=== PATIENT | female | born 1940 | race Caucasian/White ===

== ENCOUNTER → 2016-07-19 | Outpatient (REF) | payer MEDICARE, BC ==
[2016-07-19 12:20] LABS: ALBUMIN 3.6 GM/DL (3.2-5.2); ALBUMIN/GLOBULIN RATIO 1.29 (1.00-1.93); ALKALINE PHOSPHATASE 115 U/L (45-117); ALT/SGPT 21 U/L (12-78); ANION GAP 10 MEQ/L (8-16); AST/SGOT 17 U/L (15-37); BILIRUBIN,TOTAL 0.3 MG/DL (0.2-1.0); BLOOD UREA NITROGEN 27 MG/DL (7-18); CALCIUM LEVEL 8.7 MG/DL (8.8-10.2); CARBON DIOXIDE LEVEL 28 MEQ/L (21-32); CHLORIDE LEVEL 105 MEQ/L (98-107); CHOLESTEROL LEVEL 208 MG/DL (<200); CREATININE FOR GFR 0.91 MG/DL (0.55-1.02); GLOMERULAR FILTRATION RATE > 60.0 (>39); GLUCOSE, FASTING 92 MG/DL (83-110); MAGNESIUM LEVEL 2.2 MG/DL (1.8-2.4); POTASSIUM SERUM 4.8 MEQ/L (3.5-5.1); SODIUM LEVEL 143 MEQ/L (136-145); TOTAL PROTEIN 6.4 GM/DL (6.4-8.2); TRIGLYCERIDES LEVEL 38 MG/DL (<150)
== END ==
LOC: M SFHCPLAZ 09:54
PROVIDERS: ATTEND Internal Medicine
DX: I10 Essential (primary) hypertension (principal); I25.10 Atherosclerotic heart disease of native coronary artery without angina pectoris; E03.9 Hypothyroidism, unspecified

== ENCOUNTER → 2016-11-25 | Outpatient (CLI) | payer MEDICARE, BC ==
[~2016-11-25] VITALS: Ht 162.6 cm; Wt 86.2 kg
[~2016-11-25] MED LIST: ASPI32ECTA PO; CALC600T57 PO; FISH1000 PO; LEVO100T5 PO; LIDOCAINE 2% INJ 100 MG/5 ML SDV (FOR ANES.) As Ordered ONE; LISI-538 PO; LORA10TA2 PO; MAGN1TAB25 PO; METO200T15 PO; METR0.7534 TOP; NS 1,000 ML IV SCH; OSTETAB13 PO; OSTETAB2 PO; PROBCAP4 PO; PROPOFOL 200 MG/20 ML VIAL As Ordered ONE; TOPR200T PO; VITA400C29 PO; ZEST1TAB7 PO; ePHEDrine SULFATE 25 MG/5 ML(5MG/ML) SYRINGE As Ordered ONE
[2016-11-25 14:15] VITALS: BP 136/73
== END | disposition home or self-care (01) ==
LOC: M OPP 12:57
PROVIDERS: ATTEND Internal Medicine Gastroenterology
DX: Z12.11 Encounter for screening for malignant neoplasm of colon (principal); K64.0 First degree hemorrhoids; K57.30 Diverticulosis of large intestine without perforation or abscess without bleeding; R19.5 Other fecal abnormalities; I48.91 Unspecified atrial fibrillation; I25.10 Atherosclerotic heart disease of native coronary artery without angina pectoris; I12.9 Hypertensive chronic kidney disease with stage 1 through stage 4 chronic kidney disease, or unspecified chronic kidney disease; E03.9 Hypothyroidism, unspecified; R12 Heartburn; M19.90 Unspecified osteoarthritis, unspecified site; Z78.0 Asymptomatic menopausal state; R06.02 Shortness of breath; K62.5 Hemorrhage of anus and rectum; L71.9 Rosacea, unspecified; N18.9 Chronic kidney disease, unspecified; Z80.3 Family history of malignant neoplasm of breast; Z80.0 Family history of malignant neoplasm of digestive organs; Z87.891 Personal history of nicotine dependence; Z88.8 Allergy status to other drugs, medicaments and biological substances; Z79.82 Long term (current) use of aspirin; Z79.899 Other long term (current) drug therapy

== ENCOUNTER → 2016-12-19 | Outpatient (CLI) | payer MEDICARE, BC ==
[~2016-12-19] MED LIST changes: +ASPI325T24 PO; -ASPI32ECTA PO; -LIDOCAINE 2% INJ 100 MG/5 ML SDV (FOR ANES.) As Ordered ONE; +METO-398 PO; -METO200T15 PO; -NS 1,000 ML IV SCH; -PROPOFOL 200 MG/20 ML VIAL As Ordered ONE; +VITA-110 PO; -VITA400C29 PO; -ePHEDrine SULFATE 25 MG/5 ML(5MG/ML) SYRINGE As Ordered ONE
--- NOTE | 2016-12-19 13:30 | REP ---
CT Head without contrast HISTORY: Fall COMPARISON: None Areas of decreased attenuation are present in the periventricular white matter present presents small-vessel ischemic disease. There is no intraparenchymal hemorrhage, acute infarct, mass or midline shift. The ventricular system and cortical sulci are dilated consistent with minimal volume loss. There is no extra cerebral collection. There is no fracture. The visualized sinuses are clear. IMPRESSION: 1. Small vessel ischemic disease. 2. Minimal volume loss. Signed by Leo Saucedo MD 12/19/2016 01:21 P
== END ==
LOC: M RAD 12:48
PROVIDERS: ATTEND Nurse Practitioner Adult Health
DX: I67.82 Cerebral ischemia (principal); G31.9 Degenerative disease of nervous system, unspecified

== ENCOUNTER → 2017-01-08 | Outpatient (REF) | payer MEDICARE, BC ==
[2017-01-08 11:59] LABS: ALBUMIN 3.5 GM/DL (3.2-5.2); ALBUMIN/GLOBULIN RATIO 1.21 (1.00-1.93); BILIRUBIN,TOTAL 0.4 MG/DL (0.2-1.0); GLOMERULAR FILTRATION RATE 57.4 (>39); MAGNESIUM LEVEL 2.5 MG/DL (1.8-2.4); POTASSIUM SERUM 4.8 MEQ/L (3.5-5.1); TOTAL PROTEIN 6.4 GM/DL (6.4-8.2)
== END ==
LOC: M SFHCPLAZ 08:26
PROVIDERS: ATTEND Internal Medicine
DX: I10 Essential (primary) hypertension (principal)

== ENCOUNTER → 2017-07-07 | Outpatient (REF) | payer MEDICARE, BC ==
[2017-07-07 14:22] LABS: ALBUMIN 3.7 GM/DL (3.2-5.2); ALBUMIN/GLOBULIN RATIO 1.23 (1.00-1.93); ALKALINE PHOSPHATASE 103 U/L (45-117); ALT/SGPT 21 U/L (12-78); ANION GAP 8 MEQ/L (8-16); AST/SGOT 19 U/L (7-37); BILIRUBIN,TOTAL 0.4 MG/DL (0.2-1.0); BLOOD UREA NITROGEN 25 MG/DL (7-18); CALCIUM LEVEL 8.8 MG/DL (8.8-10.2); CARBON DIOXIDE LEVEL 27 MEQ/L (21-32); CHLORIDE LEVEL 108 MEQ/L (98-107); CHOLESTEROL LEVEL 195 MG/DL (<200); CHOLESTEROL RISK RATIO 2.119 (<5); CREATININE FOR GFR 0.98 MG/DL (0.55-1.30); GLOMERULAR FILTRATION RATE 58.7 (>39); GLUCOSE, FASTING 98 MG/DL (70-100); HDL CHOLESTEROL 92 MG/DL (>40); LDL CHOLESTEROL 92.6 MG/DL (<100); MAGNESIUM LEVEL 2.2 MG/DL (1.8-2.4); NON-HDL-C 103 MG/DL; POTASSIUM SERUM 4.8 MEQ/L (3.5-5.1); SODIUM LEVEL 143 MEQ/L (136-145); TOTAL PROTEIN 6.7 GM/DL (6.4-8.2); TRIGLYCERIDES LEVEL 52 MG/DL (<150)
== END ==
LOC: M SFHCPLAZ 10:31
DX: I10 Essential (primary) hypertension (principal); E03.9 Hypothyroidism, unspecified
CPT/HCPCS: 83735

== ENCOUNTER → 2017-07-18 | Outpatient (CLI) | payer MEDICARE, BC | LOC: M EKG 15:08 | DX: I49.3 Ventricular premature depolarization (principal) ==

== ENCOUNTER → 2018-01-27 | Outpatient (REF) | payer MEDICARE, BC ==
[2018-01-27 10:50] LABS: HEMATOCRIT 37.9 % (36.0-47.0); HEMOGLOBIN 12.2 g/dl (12.0-15.5); MEAN CORPUSCULAR HEMOGLOBIN 29.8 pg (27.0-33.0); MEAN CORPUSCULAR HGB CONC 32.2 g/dl (32.0-36.5); MEAN CORPUSCULAR VOLUME 92.4 fl (80.0-96.0); PLATELET COUNT, AUTOMATED 266 10^3/uL (150-450); RED CELL DISTRIBUTION WIDTH 12.9 % (11.5-14.5); WHITE BLOOD COUNT 7.6 10^3/uL (4.0-10.0)
[2018-01-27 11:26] LABS: ALBUMIN 3.6 GM/DL (3.2-5.2); ALBUMIN/GLOBULIN RATIO 1.16 (1.00-1.93); ALKALINE PHOSPHATASE 105 U/L (45-117); ALT/SGPT 27 U/L (12-78); ANION GAP 8 MEQ/L (8-16); AST/SGOT 21 U/L (7-37); BILIRUBIN,TOTAL 0.5 MG/DL (0.2-1.0); BLOOD UREA NITROGEN 27 MG/DL (7-18); CALCIUM LEVEL 8.8 MG/DL (8.8-10.2); CARBON DIOXIDE LEVEL 28 MEQ/L (21-32); CHLORIDE LEVEL 109 MEQ/L (98-107); CREATININE FOR GFR 1.25 MG/DL (0.55-1.30); GLOMERULAR FILTRATION RATE 44.2 (>39); GLUCOSE, FASTING 103 MG/DL (70-100); MAGNESIUM LEVEL 2.1 MG/DL (1.8-2.4); SODIUM LEVEL 145 MEQ/L (136-145); TOTAL PROTEIN 6.7 GM/DL (6.4-8.2)
== END ==
LOC: M SFHCPLAZ 08:51
DX: I48.0 Paroxysmal atrial fibrillation (principal); I10 Essential (primary) hypertension
CPT/HCPCS: 83735

== ENCOUNTER 2018-06-28 03:55 | Emergency (ER) | payer MEDICARE, BC ==
[~2018-06-28] VITALS: Ht 160 cm; Wt 90.9 kg
[~2018-06-28 03:55] MED LIST changes: -ASPI325T24 PO; +ASPI325T25 PO; +LORA-243 PO; -LORA10TA2 PO; -METO-398 PO; +METO200T28 PO
[2018-06-28] MEDS ORDERED: PRESCAP (04:17)
[2018-06-28] MEDS ORDERED: SOOT1DRO (04:17)
[2018-06-28] MEDS ORDERED: TRAV04OPD (04:17)
[2018-06-28] MEDS ORDERED: COSO1SOL2 (04:17)
[2018-06-28 04:28] LABS: BASO # 0.1 10^3/uL (0.0-0.2); BASO % 0.7 % (0.0-1.0); EOS # 0.6 10^3/uL (0.0-0.50); EOS % 6.3 % (0.0-3.0); HEMATOCRIT 35.8 % (36.0-47.0); HEMOGLOBIN 11.7 g/dl (12.0-15.5); LYMPH # 2.1 10^3/uL (1.5-4.5); LYMPH % 22.1 % (24.0-44.0); MEAN CORPUSCULAR HEMOGLOBIN 29.8 pg (27.0-33.0); MEAN CORPUSCULAR HGB CONC 32.7 g/dl (32.0-36.5); MEAN CORPUSCULAR VOLUME 91.1 fl (80.0-96.0); MONO % 10.1 % (0.0-5.0); NEUTROPHILS # 5.7 10^3/uL (1.8-7.7); NEUTROPHILS % 60.7 % (36.0-66.0); PLATELET COUNT, AUTOMATED 265 10^3/uL (150-450); RED BLOOD COUNT 3.93 10^6/uL (4.00-5.40); WHITE BLOOD COUNT 9.4 10^3/uL (4.0-10.0)
[2018-06-28 05:00] LABS: BLOOD UREA NITROGEN 33 MG/DL (7-18); CALCIUM LEVEL 9.4 MG/DL (8.8-10.2); CARBON DIOXIDE LEVEL 25 MEQ/L (21-32); CHLORIDE LEVEL 108 MEQ/L (98-107); CPK CREATINE PHOSPHOKINASE 58 U/L (26-192); CREATININE FOR GFR 1.08 MG/DL (0.55-1.30); FREE THYROXINE INDEX 4.1 % (1.3-4.8); GLOMERULAR FILTRATION RATE 52.4 (>39); GLUCOSE, FASTING 129 MG/DL (70-100); MAGNESIUM LEVEL 2.1 MG/DL (1.8-2.4); MB/CK RELATIVE INDEX 2.41 (< OR =4); POTASSIUM SERUM 4.4 MEQ/L (3.5-5.1); SODIUM LEVEL 141 MEQ/L (136-145); T UPTAKE 37 % (30-39); TROPONIN I < 0.02 NG/ML (< 0.10)
[2018-06-28] MEDS ORDERED: FLECAINIDE 50MG TABLET PO ONE ×2 (05:00→06:15)
[2018-06-28] MEDS ORDERED: NS 1,000 ML IV ONE (05:15)
[2018-06-28] MEDS ORDERED: FLEC50HA PO (06:31)
[2018-06-28 06:48] VITALS: BP 117/56
--- NOTE | 2018-06-28 09:32 | ECGEPIP ---
Stationary ECG Study [facility] - ED Test Date: 2018-06-28 Pat Name: KORY MESSER Department: Room: - Gender: F Coater Operator: AF : 1940 Requested By: MARY ELLEN MCWILLIAMS Order Number: [id number] Reading MD: Fiona Carvajal Measurements Intervals [place] Rate: 94 P: ME: 0 QRS: 17 QRSD: 94 T: -32 QT: 333 QTc: 418 Interpretive Statements ATRIAL FIBRILLATION PROBABLE INFERIOR MYOCARDIAL INFARCTION, OF INDETERMINATE AGE ST DEPRESSION, CONSIDER SUBENDOCARDIAL INJURY 07/18/[address] T WAVE CHANGES Electronically Signed On 06-28-2018 9:31:58 EST by Fiona Carvajal
--- NOTE | 2018-06-28 09:34 | ECGEPIP ---
Stationary ECG Study [facility] - ED Test Date: 2018-06-28 Pat Name: OKRY MESSER Department: Room: - Gender: F Dictaphone Operator: AF : 1940 Requested By: MARY ELLEN MCWILLIAMS Order Number: [id number] Reading MD: Fiona Carvajal Measurements Intervals [place] Rate: 83 P: RI: 0 QRS: 43 QRSD: 102 T: -37 QT: 360 QTc: 425 Interpretive Statements ATRIAL FIBRILLATION PROBABLE INFERIOR MYOCARDIAL INFARCTION, OF INDETERMINATE AGE MODERATE T-WAVE ABNORMALITY, CONSIDER ANTERIOR ISCHEMIA CW 06/28/[address] T WAVE CHANGES - RULE OUT ISCHEMIA CLINICAL CORRELATION ADVISED Electronically Signed On 06-28-2018 9:34:03 EST by Fiona Carvajal
== END 2018-06-28 06:52 | disposition home or self-care (01) ==
LOC: M ED 03:55
DX: I48.91 Unspecified atrial fibrillation (principal); I10 Essential (primary) hypertension; E03.9 Hypothyroidism, unspecified; Z88.1 Allergy status to other antibiotic agents; Z88.8 Allergy status to other drugs, medicaments and biological substances; Z87.891 Personal history of nicotine dependence

== ENCOUNTER → 2018-08-20 | Outpatient (REF) | payer MEDICARE, BC ==
[~2018-08-20] MED LIST changes: +COSO1SOL2; +FLEC50HA PO; +PRESCAP; +SOOT1DRO; +TRAV04OPD
[2018-08-20 11:25] LABS: ALBUMIN 3.9 GM/DL (3.2-5.2); BILIRUBIN,TOTAL 0.5 MG/DL (0.2-1.0); CALCIUM LEVEL 8.9 MG/DL (8.8-10.2); CHOLESTEROL RISK RATIO 2.406 (<5); CREATININE FOR GFR 1.1 MG/DL (0.55-1.30); GLOMERULAR FILTRATION RATE 51.3 (>39); MAGNESIUM LEVEL 2.2 MG/DL (1.8-2.4); POTASSIUM SERUM 4.9 MEQ/L (3.5-5.1); THYROID STIMULATING HORMONE 2.03 uIU/ML (0.358-3.740); TOTAL PROTEIN 7.1 GM/DL (6.4-8.2)
== END ==
LOC: M SFHCPLAZ 08:27
PROVIDERS: ATTEND Internal Medicine
DX: I10 Essential (primary) hypertension (principal); I25.10 Atherosclerotic heart disease of native coronary artery without angina pectoris; E03.9 Hypothyroidism, unspecified

== ENCOUNTER → 2019-05-12 | Outpatient (REF) | payer MEDICARE, BC ==
[~2019-05-12] MED LIST changes: +ASPI-255 PO; -ASPI325T25 PO; -MAGN1TAB25 PO; +MAGN1TAB26 PO
[2019-05-12 13:17] LABS: HEMATOCRIT 38.1 % (36.0-47.0); HEMOGLOBIN 11.9 g/dl (12.0-15.5); MEAN CORPUSCULAR HEMOGLOBIN 29.5 pg (27.0-33.0); MEAN CORPUSCULAR HGB CONC 31.2 g/dl (32.0-36.5); MEAN CORPUSCULAR VOLUME 94.3 fl (80.0-96.0); PLATELET COUNT, AUTOMATED 279 10^3/uL (150-450); RED BLOOD COUNT 4.04 10^6/uL (4.00-5.40); WHITE BLOOD COUNT 7.3 10^3/uL (4.0-10.0)
[2019-05-12 13:35] LABS: HEMOGLOBIN A1c 5.9 %
[2019-05-12 13:36] LABS: ALBUMIN 3.7 GM/DL (3.2-5.2); BILIRUBIN,TOTAL 0.4 MG/DL (0.2-1.0); CALCIUM LEVEL 8.8 MG/DL (8.8-10.2); CHOLESTEROL RISK RATIO 2.351 (<5); CREATININE FOR GFR 1.06 MG/DL (0.55-1.30); GLOMERULAR FILTRATION RATE 53.4 (>39); MAGNESIUM LEVEL 2.2 MG/DL (1.8-2.4); POTASSIUM SERUM 5.2 MEQ/L (3.5-5.1); TOTAL PROTEIN 7.1 GM/DL (6.4-8.2)
== END ==
LOC: M SFHCPLAZ 09:28
PROVIDERS: ATTEND Internal Medicine
DX: I25.10 Atherosclerotic heart disease of native coronary artery without angina pectoris (principal); I10 Essential (primary) hypertension; R73.01 Impaired fasting glucose

== ENCOUNTER 2019-05-26 13:25 | Emergency (ER) | payer MEDICARE, BC ==
[~2019-05-26] VITALS: Ht 160 cm; Wt 93.1 kg
[2019-05-26 14:16] LABS: BASO % 0.4 % (0.0-1.0); EOS # 0.1 10^3/uL (0.0-0.5); EOS % 1.2 % (0.0-3.0); HEMATOCRIT 36.5 % (36.0-47.0); HEMOGLOBIN 11.6 g/dl (12.0-15.5); LYMPH # 0.7 10^3/uL (1.5-5.0); MEAN CORPUSCULAR HEMOGLOBIN 29.4 pg (27.0-33.0); MEAN CORPUSCULAR HGB CONC 31.8 g/dl (32.0-36.5); MEAN CORPUSCULAR VOLUME 92.6 fl (80.0-96.0); MONO # 0.6 10^3/uL (0.0-0.8); MONO % 6.8 % (0.0-5.0); NEUTROPHILS # 7.7 10^3/uL (1.5-8.5); NEUTROPHILS % 83.1 % (36.0-66.0); PLATELET COUNT, AUTOMATED 247 10^3/uL (150-450); RED BLOOD COUNT 3.94 10^6/uL (4.00-5.40); WHITE BLOOD COUNT 9.3 10^3/uL (4.0-10.0)
[2019-05-26] MEDS ORDERED: areds (14:21)
[2019-05-26 14:25] LABS: INR 1.3; PROTHROMBIN TIME 15.9 SECONDS (11.8-14.0)
[2019-05-26 14:39] LABS: ALBUMIN 3.7 GM/DL (3.2-5.2); ALT/SGPT 19 U/L (12-78); BILIRUBIN,DIRECT 0.1 MG/DL (0.0-0.2); BILIRUBIN,TOTAL 0.4 MG/DL (0.2-1.0); BLOOD UREA NITROGEN 30 MG/DL (7-18); CALCIUM LEVEL 9.4 MG/DL (8.8-10.2); CARBON DIOXIDE LEVEL 27 MEQ/L (21-32); CHLORIDE LEVEL 104 MEQ/L (98-107); CK-MB VALUE MASS 1.2 NG/ML (<3.6); CPK CREATINE PHOSPHOKINASE 50 U/L (26-192); CREATININE FOR GFR 1.17 MG/DL (0.55-1.30); GLOMERULAR FILTRATION RATE 47.6 (>39); GLUCOSE, FASTING 117 MG/DL (70-100); NT-PRO BNP 1091 PG/ML (<450); POTASSIUM SERUM 4.6 MEQ/L (3.5-5.1); SODIUM LEVEL 138 MEQ/L (136-145); TOTAL PROTEIN 6.9 GM/DL (6.4-8.2); TROPONIN I < 0.02 NG/ML (< 0.10)
--- NOTE | 2019-05-26 15:04 | REP ---
Single view chest: 05/26/2019. Indication: Chest pain. Comparison: 11/16/2012. Findings: There is no air space consolidation, significant pleural effusion or pneumothorax. Mild cardiomegaly is noted. Aortic atherosclerotic disease is present. Impression: No acute cardiopulmonary process. Electronically Signed by Lopez Marmolejo DO 05/26/2019 02:55 P
[2019-05-26 15:16] LABS: AMYLASE 55 U/L (25-115); LIPASE 96 U/L (73-393)
--- NOTE | 2019-05-26 15:44 | ECGEPIP ---
[facility] - ED Test Date: 2019-05-26 Pat Name: KORY MESSER Department: Room: - Gender: Female Business Account Leader: MIKE : 1940 Requested By: Renuka Choi Order Number: [id number] Reading MD: Renuka Choi Measurements Intervals [place] Rate: 73 P: 61 DC: 194 QRS: 60 QRSD: 99 T: 26 QT: 397 QTc: 438 Interpretive Statements SINUS RHYTHM ST DEVIATION AND MODERATE T-WAVE ABNORMALITY, CONSIDER ANTERIOR ISCHEMIA, SEEN P PREVIOUSLY Electronically Signed on 05-26-2019 15:44:12 EST by Renuka Choi
[2019-05-26] MEDS ORDERED: KETOROLAC 30 MG/ML VIAL (J1885) IV ONE (16:00)
[2019-05-26] MEDS ORDERED: ONDANSETRON 4MG/2ML VIAL (J2405) IV ONE (16:00)
[2019-05-26] MEDS ORDERED: NORC1TAB7 PO (16:35)
[2019-05-26] MEDS ORDERED: ZOFR4TAB16 PO (16:37)
--- NOTE | 2019-05-26 16:40 | REP ---
CT ABDOMEN AND PELVIS WITHOUT CONTRAST: CT abdomen and pelvis performed without oral or IV contrast. Sagittal and coronal reconstruction images are performed. Visualized lung bases demonstrate no infiltrate. The liver is grossly unremarkable. Gallbladder is moderately distended and contains two gallstones, one in the neck 1.3 cm in diameter and another in the body of the gallbladder 2.2 cm in diameter. There appears to be gallbladder wall thickening and edema. This may indicate cholecystitis. The spleen is normal in size with no intrinsic abnormality. Left adrenal gland is normal. Right adrenal gland demonstrates focal calcification. Pancreas is grossly unremarkable. There is a cyst of the upper pole of the right kidney. This measures 2.9 cm in diameter. There is no hydroureteronephrosis. There is moderate atherosclerotic calcification of the abdominal aorta without aneurysm. No adenopathy is seen. There is no free air or free fluid. There is no bowel wall thickening. The appendix is normal. There is a small umbilical hernia containing fat. There is sigmoid diverticulosis without acute diverticulitis. I see no pelvic mass. Urinary bladder is not distended and not evaluated. IMPRESSION: Gallstones in the gallbladder with gallbladder wall thickening and edema, suspicious for cholecystitis. Appendix is normal. No free air or free fluid. Electronically Signed by Rudi Da Silva MD 05/26/2019 08:05 P
[2019-05-26 16:52] VITALS: BP 115/59
== END 2019-05-26 17:04 | disposition home or self-care (01) ==
LOC: M ED 13:25
DX: K80.10 Calculus of gallbladder with chronic cholecystitis without obstruction (principal); I10 Essential (primary) hypertension; I48.91 Unspecified atrial fibrillation; E07.9 Disorder of thyroid, unspecified; Z79.899 Other long term (current) drug therapy; Z79.890 Hormone replacement therapy; Z88.1 Allergy status to other antibiotic agents; Z88.8 Allergy status to other drugs, medicaments and biological substances; Z87.891 Personal history of nicotine dependence
CPT/HCPCS: 71045; 74176; 80048; 80076; 81001; 82150; 82550; 82553; 83690; 83880; 84443; 84484; 85025; 85610; 93005; 93041; 94760; 96374; 96375; 99285; J1885; J2405

== ENCOUNTER → 2019-05-31 | Outpatient (CLI) | payer MEDICARE, BC ==
[~2019-05-31] MED LIST changes: +NORC1TAB7 PO; +ZOFR4TAB16 PO; +areds
[2019-05-31 16:04] LABS: HEMATOCRIT 33.9 % (36.0-47.0); HEMOGLOBIN 10.9 g/dl (12.0-15.5); MEAN CORPUSCULAR HEMOGLOBIN 29.6 pg (27.0-33.0); MEAN CORPUSCULAR HGB CONC 32.2 g/dl (32.0-36.5); MEAN CORPUSCULAR VOLUME 92.1 fl (80.0-96.0); PLATELET COUNT, AUTOMATED 278 10^3/uL (150-450); RED BLOOD COUNT 3.68 10^6/uL (4.00-5.40); WHITE BLOOD COUNT 9.2 10^3/uL (4.0-10.0)
[2019-05-31 16:36] LABS: ALBUMIN 3.1 GM/DL (3.2-5.2); BILIRUBIN,TOTAL 0.4 MG/DL (0.2-1.0); CALCIUM LEVEL 8.9 MG/DL (8.8-10.2); CREATININE FOR GFR 1.18 MG/DL (0.55-1.30); GLOMERULAR FILTRATION RATE 47.2 (>39); POTASSIUM SERUM 4.6 MEQ/L (3.5-5.1); TOTAL PROTEIN 6.7 GM/DL (6.4-8.2)
== END ==
LOC: M LAB 14:47
PROVIDERS: ATTEND Surgery
DX: K80.00 Calculus of gallbladder with acute cholecystitis without obstruction (principal)

== ENCOUNTER 2019-07-06 07:48 | Day surgery (SDC) | payer MEDICARE, BC ==
[~2019-07-06] VITALS: Ht 160 cm; Wt 84.4 kg
[~2019-07-06 07:48] MED LIST changes: -COSO1SOL2; +COSO1SOL2 OU; +CVS400CA PO; +LR 1,000 ML IV SCH; +METR1GEL5 TOP; -PRESCAP; +PRESCAP PO; +PROBCAP14 PO; -TRAV04OPD; +TRAV04OPD OU; +XARE20TA PO; +ceFAZolin SOD 1 GM in D5W MINI-BAG PLUS 50 ML IV ONE
[2019-07-06] MEDS ORDERED: ROCURONIUM BROMIDE 50 MG/5 ML VIAL As Ordered ONE ×2 (08:05→10:57)
[2019-07-06] MEDS ORDERED: propofoL 200 MG/20 ML VIAL As Ordered ONE (08:05)
[2019-07-06] MEDS ORDERED: LIDOCAINE 2% INJ 100 MG/5 ML SDV (FOR ANES.) As Ordered ONE (08:05)
[2019-07-06] MEDS ORDERED: fentaNYL 250 MCG/5 ML INJECTION (J3010) As Ordered ONE (08:05)
[2019-07-06] MEDS ORDERED: ONDANSETRON 4MG/2ML VIAL (J2405) As Ordered ONE (08:06)
[2019-07-06] MEDS ORDERED: dexameTHASONE 4 MG/ML 1ML VIAL (J1100) As Ordered ONE (08:06)
[2019-07-06] MEDS ORDERED: MIDAZOLAM INJ 2 MG/2 ML VIAL (J2250) As Ordered ONE (08:18)
[2019-07-06] MEDS ORDERED: LABETALOL HCL 100 MG/20 ML VIAL As Ordered ONE (08:29)
[2019-07-06 08:34] LABS: HEMATOCRIT 35.4 % (36.0-47.0); MEAN CORPUSCULAR HEMOGLOBIN 28.9 pg (27.0-33.0); MEAN CORPUSCULAR HGB CONC 31.1 g/dl (32.0-36.5); MEAN CORPUSCULAR VOLUME 93.2 fl (80.0-96.0); PLATELET COUNT, AUTOMATED 239 10^3/uL (150-450)
[2019-07-06] MEDS ORDERED: SUGAMMADEX SODIUM 500 MG/5 ML VIAL (BRIDION) As Ordered ONE (09:05)
[2019-07-06 09:08] LABS: ALBUMIN 3.5 GM/DL (3.2-5.2); BILIRUBIN,TOTAL 0.3 MG/DL (0.2-1.0); CALCIUM LEVEL 9.1 MG/DL (8.8-10.2); CREATININE FOR GFR 1.12 MG/DL (0.55-1.30); GLOMERULAR FILTRATION RATE 50.1 (>39); POTASSIUM SERUM 4.3 MEQ/L (3.5-5.1); TOTAL PROTEIN 7.3 GM/DL (6.4-8.2)
[2019-07-06] MEDS ORDERED: BUPIVACAINE HCL 0.25% 10 ML VIAL As Ordered ONE (09:30)
[2019-07-06] MEDS ORDERED: BUPIVACAINE/EPIN 0.25% 30 ML VIAL As Ordered ONE (09:30)
[2019-07-06] MEDS ORDERED: BUPIVACAINE LIPOSOME/PF 1.3% 20ML VIAL (13.3MG/ML)(EXPAREL)(C9290 PER1MG) As Ordered ONE (09:31)
[2019-07-06] MEDS ORDERED: LACRILUBE (AKWA TEARS) OPHTH OINT 3.5 GM As Ordered ONE (09:48)
[2019-07-06] MEDS ORDERED: ACETAMINOPHEN 1000MG 100ML IV BTL (OFIRMEV) (J0131 PER 10MG) As Ordered ONE (10:09)
[2019-07-06] MEDS ORDERED: ePHEDrine SULFATE 25 MG/5 ML(5MG/ML) SYRINGE As Ordered ONE (10:11)
[2019-07-06] MEDS ORDERED: PERCOCET 5MG/325MG TAB PO PRN (11:45)
[2019-07-06] MEDS ORDERED: LR 1,000 ML IV SCH ×2 (11:45→12:00)
[2019-07-06] MEDS ORDERED: fentaNYL 100 MCG/2 ML INJECTION (J3010) IV PRN (11:45)
[2019-07-06] MEDS ORDERED: METOCLOPRAMIDE INJ 10MG/2ML VIAL (J2765) IV PRN (11:45)
[2019-07-06] MEDS ORDERED: KETOROLAC 30 MG/ML VIAL (J1885) IV PRN (11:45)
[2019-07-06] MEDS ORDERED: ONDANSETRON 4MG/2ML VIAL (J2405) IV PRN (11:45)
[2019-07-06] MEDS ORDERED: NORCO, ANEXSIA 5/325MG TABLET (HYDROcodone/ACETAMINOPHEN) PO PRN (12:00)
--- NOTE | 2019-07-06 12:04 | RO ---
DATE OF PROCEDURE: 07/06/2019 PREOPERATIVE DIAGNOSES: 1. Umbilical hernia. 2. History of cholecystitis. POSTOPERATIVE DIAGNOSES: 1. Umbilical hernia. 2. History of cholecystitis. PROCEDURE: 1. Laparoscopic cholecystectomy. 2. Open umbilical herniorrhaphy. SURGEON: Dr. Marlon Saldana. ANESTHESIA: General endotracheal anesthesia. ESTIMATED BLOOD LOSS: Minimal. FLUIDS: Crystalloid. DESCRIPTION OF PROCEDURE: The patient was brought to the operating room and was given general anesthesia. After adequate anesthesia and preoperative antibiotics were given, the patient was prepped and draped in sterile fashion. Next a periumbilical incision was made with skin knife. Blunt dissection was carried down to the fascia and down to the base of the umbilical hernia and the umbilical hernia was transected at its base. After opening up the hernia sac and resecting back the preperitoneal tissue that was coming through the hernia sac itself. Once the peritoneum was entered a [id number] 0 Vicryl was used to close down the fascial defect to allow for a trocar to be placed and insufflation. The abdomen was insufflated at this time and epigastric and two lateral trocars were placed. The gallbladder was adherent to the omentum. There was also a tight band of adhesion going from the gallbladder to the anterior abdominal wall. There was chronic fibrosis all up against the gallbladder itself. Eventually, this was taken down with electrocautery down to where I was able to see the duodenum coming up against the neck of the gallbladder. This I was able to bluntly pull it off the neck of the gallbladder but a small portion was still attached. Thus I used scissors to cut on the gallbladder side. Still the pylorus was stuck up against the duodenum in this area/was stuck up against the liver and staying on the liver side, I was able take down some of the adhesions. I did not continue with taking down all the adhesions just because of how thick these were. Thus I was able to get to the neck of the gallbladder and clear the neck of the gallbladder of peritoneum. Prior to this the gallbladder needed to be aspirated to be able to grasp because it was so thick and tight. The neck of the gallbladder was carried to the peritoneum on the lateral side and then following it posterior to the cystic duct, I could see posteriorly the cystic duct. Then on the medial side all the tissue was quite thickened and just opening up the peritoneum I used a peanut dissector and the suction to dissect down to the level of the posterior aspect of the gallbladder and then the gallbladder was then lifted off and work on the posterior side down to the neck of the gallbladder. Once a good window was appreciated and I was able to isolate the cystic artery, this was clipped proximally and distally and transected. The peritoneum and the tissue was so thickened that there was some additional tissue coming up to the posterior aspect of the bed of the gallbladder that I also clipped and it appeared to be a very small vessel, probably a branch off the cystic duct that was clipped as well. In any case, the cystic duct was well visualized, circumferentially clipped proximally and distally and transected the gallbladder. Then it was removed from the gallbladder bed using electrocautery. Once again, this was quite thickened gallbladder wall and when I got up to the top/dome of the gallbladder, there was purulent discharge and it is hard to know if the gallbladder perforated in the omentum that would have been overlying this area and created a sterile abscess or whether this was a perforated gallbladder in the bed of the liver itself. In any case, this was dissected off, placed in an EndoCatch bag and the right upper quadrant was copiously irrigated until clear. It was clean and dry in the operative field, but given the inflammatory changes and the thickened nature of this I did put some Norris in the bed of the gallbladder area. It was all nice and white and no evidence of bile drainage. No bleeding and the duodenum was down and reveal marked and some serosal injury or abnormality in this area. In any case, all trocars removed under direct visualization after the gallbladder was taken out through the umbilicus. 0 Ethibond was used close the umbilicus and the three [id number] sutures and there definitely was still some omentum/preperitoneum on the lateral aspects of the hernia but I stayed right on the level of the fascia when closing this and a good with [id number] and lifted this off with Kochers and this was closed and then #3-0 Vicryl was used to bring the dermis and tack the umbilicus down. #4-0 Vicryl was used to approximate the skin. Steri-Strips and dry sterile dressing was applied with #4-0 Vicryl used at all trocar sites. The patient was awakened, extubated, brought to recovery room awake, alert, hemodynamically stable. Sponge and needle counts correct times two.
[2019-07-06 14:15] VITALS: BP 142/67
== END 2019-07-06 14:52 | disposition home or self-care (01) ==
LOC: M SDC 07:48
PROVIDERS: ATTEND Surgery
DX: K80.10 Calculus of gallbladder with chronic cholecystitis without obstruction (principal); K42.9 Umbilical hernia without obstruction or gangrene; I48.91 Unspecified atrial fibrillation; I25.10 Atherosclerotic heart disease of native coronary artery without angina pectoris; I10 Essential (primary) hypertension; E03.9 Hypothyroidism, unspecified; K21.9 Gastro-esophageal reflux disease without esophagitis; K57.30 Diverticulosis of large intestine without perforation or abscess without bleeding; Z88.1 Allergy status to other antibiotic agents; Z88.8 Allergy status to other drugs, medicaments and biological substances; Z79.899 Other long term (current) drug therapy; Z79.01 Long term (current) use of anticoagulants
CPT/HCPCS: 36415; 47562; 49585; 80053; 85027; 87070; 87077; 87186; 87205; 88302; 88304; C9290; J0131; J0690; J1100; J2250; J2405; J3010

== ENCOUNTER → 2019-10-14 | Outpatient (REF) | payer MEDICARE, BC ==
[~2019-10-14] MED LIST changes: -LR 1,000 ML IV SCH; -ceFAZolin SOD 1 GM in D5W MINI-BAG PLUS 50 ML IV ONE
[2019-10-14 11:49] LABS: HEMATOCRIT 35.8 % (36.0-47.0); HEMOGLOBIN 11.3 g/dl (12.0-15.5); MEAN CORPUSCULAR HEMOGLOBIN 29.7 pg (27.0-33.0); MEAN CORPUSCULAR HGB CONC 31.6 g/dl (32.0-36.5); PLATELET COUNT, AUTOMATED 292 10^3/uL (150-450); RED BLOOD COUNT 3.81 10^6/uL (4.00-5.40); WHITE BLOOD COUNT 8.3 10^3/uL (4.0-10.0)
[2019-10-14 12:24] LABS: ALBUMIN 3.6 GM/DL (3.2-5.2); BILIRUBIN,TOTAL 0.4 MG/DL (0.2-1.0); CHOLESTEROL RISK RATIO 2.183 (<5); CREATININE FOR GFR 1.18 MG/DL (0.55-1.30); GLOMERULAR FILTRATION RATE 47.2 (>39); MAGNESIUM LEVEL 2.2 MG/DL (1.8-2.4); POTASSIUM SERUM 5.1 MEQ/L (3.5-5.1); THYROID STIMULATING HORMONE 4.1 uIU/ML (0.358-3.740); TOTAL PROTEIN 7.2 GM/DL (6.4-8.2)
[2019-10-14 13:56] LABS: HEMOGLOBIN A1c 5.9 %
== END ==
LOC: M SFHCPLAZ 08:11
PROVIDERS: ATTEND Internal Medicine
DX: K57.90 Diverticulosis of intestine, part unspecified, without perforation or abscess without bleeding (principal); I10 Essential (primary) hypertension; R73.01 Impaired fasting glucose; I25.10 Atherosclerotic heart disease of native coronary artery without angina pectoris; E03.9 Hypothyroidism, unspecified

== ENCOUNTER → 2020-05-08 | Outpatient (REF) | payer MEDICARE, BC ==
[2020-05-08 11:05] LABS: HEMATOCRIT 35.3 % (36.0-47.0); HEMOGLOBIN 11.3 g/dl (12.0-15.5); MEAN CORPUSCULAR HEMOGLOBIN 30.3 pg (27.0-33.0); MEAN CORPUSCULAR VOLUME 94.6 fl (80.0-96.0); PLATELET COUNT, AUTOMATED 263 10^3/uL (150-450); RED BLOOD COUNT 3.73 10^6/uL (4.00-5.40); WHITE BLOOD COUNT 7.6 10^3/uL (4.0-10.0)
[2020-05-08 11:22] LABS: HEMOGLOBIN A1c 5.7 %
[2020-05-08 11:44] LABS: ALBUMIN 3.5 GM/DL (3.2-5.2); BILIRUBIN,TOTAL 0.4 MG/DL (0.2-1.0); CALCIUM LEVEL 8.8 MG/DL (8.8-10.2); CHOLESTEROL RISK RATIO 2.477 (<5); CREATININE FOR GFR 1.28 MG/DL (0.55-1.30); GLOMERULAR FILTRATION RATE 42.8 (>39); MAGNESIUM LEVEL 2.3 MG/DL (1.8-2.4); POTASSIUM SERUM 5.1 MEQ/L (3.5-5.1); THYROID STIMULATING HORMONE 2.68 uIU/ML (0.358-3.740); TOTAL PROTEIN 6.7 GM/DL (6.4-8.2)
== END ==
LOC: M PLALAB 08:26
PROVIDERS: ATTEND Internal Medicine
DX: I48.0 Paroxysmal atrial fibrillation (principal); I10 Essential (primary) hypertension; R73.01 Impaired fasting glucose; I25.10 Atherosclerotic heart disease of native coronary artery without angina pectoris; E03.9 Hypothyroidism, unspecified

== ENCOUNTER 2020-06-06 09:15 | Emergency (ER) | payer MEDICARE, BC ==
[~2020-06-06] VITALS: Ht 160 cm; Wt 93.7 kg
[2020-06-06 10:03] LABS: BASO % 0.3 % (0.0-1.0); EOS # 0.1 10^3/uL (0.0-0.5); EOS % 0.7 % (0.0-3.0); HEMATOCRIT 36.5 % (36.0-47.0); HEMOGLOBIN 11.5 g/dl (12.0-15.5); LYMPH # 0.8 10^3/uL (1.5-5.0); LYMPH % 8.2 % (24.0-44.0); MEAN CORPUSCULAR HEMOGLOBIN 29.2 pg (27.0-33.0); MEAN CORPUSCULAR HGB CONC 31.5 g/dl (32.0-36.5); MEAN CORPUSCULAR VOLUME 92.6 fl (80.0-96.0); MONO # 0.6 10^3/uL (0.0-0.8); MONO % 5.8 % (0.0-5.0); NEUTROPHILS % 84.5 % (36.0-66.0); PLATELET COUNT, AUTOMATED 262 10^3/uL (150-450); RED BLOOD COUNT 3.94 10^6/uL (4.00-5.40); WHITE BLOOD COUNT 9.5 10^3/uL (4.0-10.0)
[2020-06-06 10:13] LABS: INR 1.44; PROTHROMBIN TIME 17.9 SECONDS (12.5-14.3)
--- NOTE | 2020-06-06 10:24 | REP ---
INDICATION: "fuzzy". COMPARISON: Comparison head CT study December 19, 2016. TECHNIQUE: Helical scanning is acquired. 5 mm axial images were reformatted. Coronal MPR images were generated. FINDINGS: Bone window settings demonstrate an intact bony calvarium. There is no evidence of skull fracture or incidental bony calvarial lesion. The visualized paranasal sinuses appear clear. No intraorbital abnormality is seen. On soft tissue window setting images; the lateral, third, and fourth ventricles are normal in size and position. Da Silva-white differentiation pattern is normal above and below the tentorium. There are is no evidence of intracranial hemorrhage. No mass, edema, infarction, or midline shift is seen. No extra-axial fluid collection is appreciated. There is mild vascular calcification in the distal internal carotid arteries. IMPRESSION: Mild vascular calcification, otherwise negative noncontrast head CT.. <Electronically signed by Hunter Sky > 06/06/20 1022
[2020-06-06 10:36] LABS: ALBUMIN 3.6 GM/DL (3.2-5.2); ALT/SGPT 16 U/L (12-78); BILIRUBIN,DIRECT < 0.1 MG/DL (0.0-0.2); BILIRUBIN,TOTAL 0.3 MG/DL (0.2-1.0); BLOOD UREA NITROGEN 30 MG/DL (7-18); CARBON DIOXIDE LEVEL 25 MEQ/L (21-32); CHLORIDE LEVEL 104 MEQ/L (98-107); CK-MB VALUE MASS 1.2 NG/ML (<3.6); CPK CREATINE PHOSPHOKINASE 57 U/L (26-192); CREATININE FOR GFR 1.24 MG/DL (0.55-1.30); GLOMERULAR FILTRATION RATE 44.4 (>39); GLUCOSE, FASTING 129 MG/DL (70-100); LIPASE 104 U/L (73-393); MB/CK RELATIVE INDEX 2.11 (< OR =4); POTASSIUM SERUM 4.6 MEQ/L (3.5-5.1); SODIUM LEVEL 139 MEQ/L (136-145); TOTAL PROTEIN 7.1 GM/DL (6.4-8.2); TROPONIN I < 0.02 NG/ML (< 0.10)
[2020-06-06] MEDS ORDERED: AMLO1TAB24 PO (11:19)
[2020-06-06 11:25] VITALS: BP 148/66
[2020-06-06] MEDS ORDERED: amLODIPine 5 MG TAB PO ONE (11:30)
[2020-06-06 11:44] VITALS: BP 125/58
--- NOTE | 2020-06-06 13:13 | ECGEPIP ---
[facility] - ED Test Date: 2020-06-06 Pat Name: KORY MESSER Department: Room: - Gender: Female Railroad Engineer: christo : 1940 Requested By: Renuka Choi Order Number: [id number] Reading MD: Allan Lilly Measurements Intervals [place] Rate: 61 P: 3 NM: 181 QRS: 24 QRSD: 104 T: -2 QT: 405 QTc: 409 Interpretive Statements SINUS RHYTHM INFERIOR MYOCARDIAL INFARCTION, PROBABLY OLD ST-T wave changes consider anterior ischemia, but similar to 05-26-19 tracing Electronically Signed on 06-06-2020 13:13:01 EST by Allan Lilly
== END 2020-06-06 11:47 | disposition home or self-care (01) ==
LOC: M ED 09:15
DX: I10 Essential (primary) hypertension (principal); E03.9 Hypothyroidism, unspecified; I48.91 Unspecified atrial fibrillation; Z88.1 Allergy status to other antibiotic agents

== ENCOUNTER → 2020-06-19 | Outpatient (REF) | payer MEDICARE, BC ==
[~2020-06-19] MED LIST changes: +AMLO1TAB24 PO
[2020-06-19 15:14] LABS: BLOOD UREA NITROGEN 30 MG/DL (7-18); CALCIUM LEVEL 9.8 MG/DL (8.8-10.2); CARBON DIOXIDE LEVEL 29 MEQ/L (21-32); CHLORIDE LEVEL 101 MEQ/L (98-107); CREATININE FOR GFR 1.31 MG/DL (0.55-1.30); FOLATE > 24.0 NG/ML; GLOMERULAR FILTRATION RATE 41.7 (>39); GLUCOSE, FASTING 114 MG/DL (70-100); MAGNESIUM LEVEL 2.6 MG/DL (1.8-2.4); POTASSIUM SERUM 5.2 MEQ/L (3.5-5.1); SODIUM LEVEL 135 MEQ/L (136-145); VITAMIN B12 LEVEL 1387 PG/ML
== END ==
LOC: M SFHCPLAZ 10:46
PROVIDERS: ATTEND Internal Medicine
DX: R53.83 Other fatigue (principal); I10 Essential (primary) hypertension
CPT/HCPCS: 36415; 80048; 82607; 82746; 83735; G0463

== ENCOUNTER → 2020-07-10 | Outpatient (REF) | payer MEDICARE, BC ==
[2020-07-10 16:56] LABS: CALCIUM LEVEL 9.4 MG/DL (8.8-10.2); CREATININE FOR GFR 1.24 MG/DL (0.55-1.30); GLOMERULAR FILTRATION RATE 44.4 (>39); POTASSIUM SERUM 4.8 MEQ/L (3.5-5.1)
== END ==
LOC: M PLALAB 13:54
PROVIDERS: ATTEND Internal Medicine
DX: I10 Essential (primary) hypertension (principal)

== ENCOUNTER 2020-09-15 10:07 | Inpatient (IN) | payer MEDICARE, BC ==
[~2020-09-15] VITALS: Ht 160 cm; Wt 90.2 kg
[~2020-09-15 10:07] MED LIST changes: -LISI-538 PO; +LISI20TA33 PO
[2020-09-15] MEDS ORDERED: SPIR-10 PO (10:18)
[2020-09-15 10:55] LABS: BASO % 0.3 % (0.0-1.0); EOS # 0.1 10^3/uL (0.0-0.5); EOS % 0.4 % (0.0-3.0); HEMOGLOBIN 11.6 g/dl (12.0-15.5); LYMPH # 1.1 10^3/uL (1.5-5.0); LYMPH % 9.3 % (24.0-44.0); MEAN CORPUSCULAR HEMOGLOBIN 29.7 pg (27.0-33.0); MEAN CORPUSCULAR HGB CONC 32.2 g/dl (32.0-36.5); MEAN CORPUSCULAR VOLUME 92.1 fl (80.0-96.0); MONO % 8.8 % (2.0-8.0); NEUTROPHILS # 9.4 10^3/uL (1.5-8.5); NEUTROPHILS % 80.6 % (36.0-66.0); PLATELET COUNT, AUTOMATED 282 10^3/uL (150-450); RED BLOOD COUNT 3.91 10^6/uL (4.00-5.40); WHITE BLOOD COUNT 11.6 10^3/uL (4.0-10.0)
[2020-09-15 11:16] LABS: BLOOD UREA NITROGEN 32 MG/DL (7-18); CALCIUM LEVEL 9.4 MG/DL (8.8-10.2); CARBON DIOXIDE LEVEL 26 MEQ/L (21-32); CHLORIDE LEVEL 107 MEQ/L (98-107); CK-MB VALUE MASS 1.8 NG/ML (<3.6); CPK CREATINE PHOSPHOKINASE 58 U/L (26-192); CREATININE FOR GFR 1.13 MG/DL (0.55-1.30); GLOMERULAR FILTRATION RATE 49.4 (>39); GLUCOSE, FASTING 142 MG/DL (70-100); POTASSIUM SERUM 4.5 MEQ/L (3.5-5.1); SODIUM LEVEL 139 MEQ/L (136-145); TROPONIN I < 0.02 NG/ML (< 0.10)
--- NOTE | 2020-09-15 11:31 | REP ---
INDICATION: CHEST PAIN. COMPARISON: 05/26/2019. TECHNIQUE: SINGLE PORTABLE AP VIEW OF THE CHEST WAS PERFORMED. FINDINGS: There is linear fibro atelectatic change in the right lung base without evidence of acute infiltrate. Cardiac silhouette is mildly enlarged. There is calcification of the thoracic aorta. Mediastinal silhouette is unchanged. There are degenerative changes of the spine. IMPRESSION: Mild right basilar fibro atelectatic change. <Electronically signed by Rudi Da Silva > 09/15/20 1127
[2020-09-15 11:49] LABS: MAGNESIUM LEVEL 2.1 MG/DL (1.8-2.4)
[2020-09-15] MEDS: METOPROLOL 5 MG/5 ML VIAL IV SCH ×3 (12:31→13:17)
[2020-09-15 14:05] LABS: NT-PRO BNP 3459 PG/ML (<450)
[2020-09-15] MEDS ORDERED: FUROSEMIDE 40MG/4ML VIAL (J1940) IV ONE (14:20)
[2020-09-15] MEDS ORDERED: METR0.7534 TOP (14:32)
[2020-09-15] MEDS ORDERED: AMLO1TAB24 PO (14:32)
[2020-09-15] MEDS ORDERED: FLEC50HA PO (14:32)
[2020-09-15] MEDS ORDERED: RA G1TAB11 PO (14:32)
[2020-09-15] MEDS ORDERED: D-40TAB2 PO (14:32)
[2020-09-15 15:22] LABS: RSV AMPLIFICATION NEGATIVE (NEGATIVE)
[2020-09-15] MEDS ORDERED: ACETAMINOPHEN TAB 650MG DOSE (2X325MG) PO PRN (15:50)
[2020-09-15] MEDS ORDERED: MOM 30ML SUSPENSION UDC PO PRN (15:50)
--- NOTE | 2020-09-15 16:12 | HPEPDOC ---
[facility] Medical History & Physical Date of Admission Sep 15, 2020 Date of Service: Sep 15, 2020 History and Physical Chief complaint: Who presented to the ER with SOB with exertion History of present illness: Patient is a 79 year old female with a PMHx of A fib (on Flecainide / Metoprolol / Xarelto), HTN, Reported CAD (no stents / MS), Hypothyroidism, Rosacea, Glaucoma, GERD who presented to emergency room with complaints of shortness of breath with exertion. Patient reports that she was started on amlodipine May 2020 and was started on spironolactone June 2020. has never had a diagnosis of congestive heart failure. She gets a careful log of her blood pressures and heart rates. She showed me that her blood pressure has generally run in the upper 90s to low 100s most of the time and her heart rate is in the 60s over last few days, her heart rate has been greater than 100 and blood pressure have been in 140s. Arrival to emergency room, patient denies any chest pain or palpitations. She reports a nonproductive cough. Reports that she does get short of breath with minimal exertion and this has been a new problem for her over the last 3 days. Patient denies any abdominal pain, nausea, vomiting, constipation, diarrhea, or urinary discomfort. She denies any recent fevers or chills. She reports that she has received both doses of the COVID19 vaccine; completed on 08/13. Patient reports her appetite is fairly normal. She does report that she may have had an increase in her weight, but is unable to quantify. Past Medical History: A fib (on Flecainide / Metoprolol / Xarelto) HTN Reported CAD (no stents / MS) Hypothyroidism Rosacea Glaucoma Past Surgical History: Cholecystectomy Right knee arthroscopy Left knee joint injection Tonsillectomy and adenoidectomy Allergies: See below Medications: See below Family History: - No history of malignancies Social History: - Denies the use of illicit drugs; she reports social alcohol use; quit smoking in the 1970s but was a smoker of 0.5PPD x 10 years - Denies recent travel or sick contacts - Lives with - Occupation; retired nurse Review of Systems: 10 point review of systems complete, all negative otherwise stated in HPI Physical exam: - Vitals: BP [130/71], HR [102], RR [18], Sat [99%RA], Temp [97.3F] - General: Sitting up in bed, No acute distress, Speaking in full sentences, AAOx3 - HEENT: NC, AT, PERRLA - CVS: RRR, +S1S2, - Murmurs / rubs / gallops - Lungs: Fair air entry bilaterally, No appreciable wheezing / rales / rhonchi - Abdomen: Soft, Non-distended, Non-tender - Extremities: 1-2+ pitting edema, No calf tenderness - Neuro: No focal motor or sensory deficit - Skin: No visible rashes Labs: See below Imaging: CXR 09/15: Mild right basilar fibro atelectatic change. EKG: See below Assessment and Plan: Shortness of breath with exertion / LE edema - likely 2/2 CHF exacerbation - possibly 2/2 A. fib - Presented to the ER with 3 days of progressive SOB with exertion / LE edema - Physical reveals edema - Elevated BNP - CXR noted above - Strict ins/outs, daily weights, fluid restriction - Will check ECHO - Will c/w Furosemide 40 IV BID; has already received dose of Lasix for this evening - c/w Telemetry monitoring A. fib with RVR - Patient denies any CP or palpitations - HR has been 120s while in the room - Troponin x1 negative; will follow trend - EKG reviewed - s/p Metoprolol tartrate 5mg IV in ER - Will give dose of Metoprolol succinate 200mg PO now; based on home regimen - c/w Flecainde - c/w Full anticoagulation with Xarelto HTN - BP well controlled - c/w Metoprolol with holding parameters - Will hold Amlodipine / Lisinopril - Add Furosemide Reported CAD (no stents / MS) - She reports that she has stress test greater than 5 years ago reported to be negative - Has not required any cardiac catheterization Hypothyroidism - Continue with levothyroxine Rosacea - Continue with topical metronidazole Glaucoma - s/p surgical correction Vitamin D deficiency - c/w supplementation DVT prophylaxis - Will c/w full anticoagulation with Xarelto Vital Signs Vital Signs Date Time Temp Pulse Resp B/P (MAP) Pulse Ox O2 Delivery O2 Flow Rate FiO2 09/15/20 15:59 88 18 97 Room Air 09/15/20 15:46 120/60 (80) 09/15/20 10:08 97.3 Laboratory Data Labs 24H Laboratory Tests 2 09/15/20 10:36: Immature Granulocyte % (Auto) 0.6, Neutrophils (%) (Auto) 80.6H, Lymphocytes (%) (Auto) 9.3L, Monocytes (%) (Auto) 8.8H, Eosinophils (%) (Auto) 0.4, Basophils (%) (Auto) 0.3, Neutrophils # (Auto) 9.4H, Lymphocytes # (Auto) 1.1L, Monocytes # (Auto) 1.0H, Eosinophils # (Auto) 0.1, Basophils # (Auto) 0.0, Nucleated Red Blood Cells % (auto) 0.0, Anion Gap 6L, Glomerular Filtration Rate 49.4, Calcium Level 9.4, Magnesium Level 2.1, Total Creatine Kinase 58, Creatine Kinase MB 1.8, Creatine Kinase MB Relative Index 3.10, Troponin I < 0.02, CK-Qtl-V-Type Natriuretic Peptide 3459H 09/15/20 14:30: Coronavirus (COVID-19)(PCR) NEGATIVE, Influenza Type A (RT-PCR) NEGATIVE, Influenza Type B (RT-PCR) NEGATIVE, Respiratory Syncytial Virus (PCR) NEGATIVE CBC/BMP Laboratory Tests 09/15/20 10:36 Home Medications Scheduled Amlodipine Besylate (Amlodipine Besylate) 5 Mg Tablet, 5 MG PO DAILY Cholecalciferol (Vitamin D3) (Vitamin D-400) 10 Mcg Tablet, 400 UNITS PO BID Flecainide Acetate (Flecainide Acetate) 50 Mg Tablet, 50 MG PO BID Glucosam/Chond-MSM 2/C/D3/Galo (Yluxpscmbs-Tgflyxxvoze-CAP Tab) 1 Each Tablet, 1 TAB PO DAILY Levothyroxine Sodium (Levothyroxine Sodium) 100 Mcg Tab, 100 MCG PO DAILY Lisinopril (Zestril) 20 Mg Tab, 20 MG PO QHS Loratadine (Loratadine) 10 Mg Tab, 10 MG PO DAILY Magnesium Oxide (Magnesium Oxide) 400 Mg Tab, 400 MG PO QHS Metoprolol Succinate (Toprol Xl) 200 Mg Tab, 200 MG PO QHS Metronidazole (Metronidazole) 60 Gm Gel..gram., 1 DOSE TOP QHS APPLY TO FACE [place]-3 Fatty Acids/Fish Oil (Fish Oil 1,000 mg Capsule) 1 Each Capsule, 1,000 MG PO BID Rivaroxaban (Xarelto) 20 Mg Tablet, 20 MG PO QPM Spironolactone (Spironolactone) 25 Mg Tablet, 12.5 MG PO 3XW MON, WED, FRI Vit A/Vit C/Vit E/Zinc/Copper (Preservision Areds Softgel) 1 Cap Cap, 1 CAP PO BID Allergies Coded Allergies: levofloxacin (Verified Allergy, Unknown, 06/28/19) SONIA NORMAN MD Sep 15, 2020 16:12
[2020-09-15 18:30] VITALS: BP 131/81
[2020-09-15] MEDS ORDERED: METOPROLOL SUCC (TopROL XL) 100MG *XL* TAB PO ONE (18:45)
[2020-09-15] MEDS: METOPROLOL SUCC (TopROL XL) 100MG *XL* TAB PO SCH (18:46)
[2020-09-15] MEDS: RIVAROXABAN 20 MG TAB (XARELTO) PO SCH (18:59)
[2020-09-15 19:10] LABS: CK-MB VALUE MASS 1.7 NG/ML (<3.6); CPK CREATINE PHOSPHOKINASE 51 U/L (26-192); MB/CK RELATIVE INDEX 3.33 (< OR =4); TROPONIN I < 0.02 NG/ML (< 0.10)
[2020-09-15 20:00] VITALS: BP 118/56
[2020-09-15] MEDS: DOCUSATE SODIUM 100MG CAPSULE PO SCH (21:08)
[2020-09-15] MEDS: OMEGA-3 1000MG CAPSULE PO SCH (21:08)
[2020-09-15] MEDS: MAGNESIUM OXIDE 400MG TAB (MAG-OX) PO SCH (21:08)
[2020-09-15] MEDS: VITAMIN D (CHOLECALCIFEROL) 400 INTERNATIONAL UNITS TAB PO SCH (21:08)
[2020-09-15] MEDS: FLECAINIDE 50MG TABLET PO SCH (21:09)
--- NOTE | 2020-09-15 21:11 | ECGEPIP ---
[facility] - ED Test Date: 2020-09-15 Pat Name: KORY MESSER Department: Room: - Gender: Female Graphic Design Intern: : 1940 Requested By: Tao Gutierres Order Number: [id number] Reading MD: Tao Cruz Measurements Intervals [place] Rate: 115 P: 94 [place]: 204 QRS: 50 QRSD: 88 T: 267 QT: 364 QTc: 503 Interpretive Statements Sinus tachycardia Wandering baseline NSTTW ABNORMALITY(S) Electronically Signed on 09-15-2020 21:10:46 EDT by Tao Cruz
[2020-09-16] VITALS: BP 102/58
[2020-09-16 02:55] LABS: CK-MB VALUE MASS < 1.0 NG/ML (<3.6); CPK CREATINE PHOSPHOKINASE 42 U/L (26-192); MB/CK RELATIVE INDEX 2.38 (< OR =4); TROPONIN I < 0.02 NG/ML (< 0.10)
[2020-09-16 04:00] VITALS: BP 125/57
[2020-09-16 05:23] LABS: BASO # 0.1 10^3/uL (0.0-0.2); BASO % 0.5 % (0.0-1.0); EOS # 0.3 10^3/uL (0.0-0.5); EOS % 2.8 % (0.0-3.0); HEMATOCRIT 34.1 % (36.0-47.0); HEMOGLOBIN 10.9 g/dl (12.0-15.5); LYMPH # 1.9 10^3/uL (1.5-5.0); LYMPH % 19.2 % (24.0-44.0); MEAN CORPUSCULAR HEMOGLOBIN 29.5 pg (27.0-33.0); MEAN CORPUSCULAR VOLUME 92.2 fl (80.0-96.0); NEUTROPHILS # 6.6 10^3/uL (1.5-8.5); NEUTROPHILS % 67.2 % (36.0-66.0); PLATELET COUNT, AUTOMATED 266 10^3/uL (150-450); WHITE BLOOD COUNT 9.7 10^3/uL (4.0-10.0)
[2020-09-16 05:50] LABS: CALCIUM LEVEL 8.6 MG/DL (8.8-10.2); CREATININE FOR GFR 1.22 MG/DL (0.55-1.30); GLOMERULAR FILTRATION RATE 45.3 (>39); MAGNESIUM LEVEL 2.3 MG/DL (1.8-2.4); POTASSIUM SERUM 4.2 MEQ/L (3.5-5.1)
[2020-09-16] MEDS: LEVOTHYROXINE 100MCG TABLET (0.1MG) PO SCH (06:15)
[2020-09-16 08:00] VITALS: BP 134/63
[2020-09-16] MEDS: FLECAINIDE 50MG TABLET PO SCH ×2 (08:04→21:01)
[2020-09-16] MEDS: LORATADINE 10 MG TAB PO SCH (08:04)
[2020-09-16] MEDS: OMEGA-3 1000MG CAPSULE PO SCH ×2 (08:04→21:01)
[2020-09-16] MEDS: VITAMIN D (CHOLECALCIFEROL) 400 INTERNATIONAL UNITS TAB PO SCH ×2 (08:04→21:01)
[2020-09-16] MEDS: DOCUSATE SODIUM 100MG CAPSULE PO SCH ×2 (08:05→21:01)
[2020-09-16] MEDS ORDERED: FUROSEMIDE 40MG/4ML VIAL (J1940) IV SCH (09:00)
--- NOTE | 2020-09-16 10:09 | IPNPDOC ---
Text Note Date of Service The patient was seen on 09/16/20. NOTE Subjective: Patient is a 79 year old female with a PMHx of A fib (on Flecainide / Metoprolol / Xarelto), HTN, Reported CAD (no stents / PA), Hypothyroidism, Rosacea, Glaucoma, GERD who presented to emergency room with complaints of shortness of breath with exertion. Patent keeps a careful log of her blood pressures and heart rates. She showed me that her blood pressure has generally run in the upper 90s to low 100s most of the time and her heart rate is in the 60s over last few days, her heart rate has been greater than 100 and blood pressure have been in 140s. Patient was admitted to the hospital service for evaluation and treatment. Patient was seen and examined at the bedside. Patient reports that they've had an uneventful evening. This morning her heart rate had resorted to normal sinus rhythm. Patient denies any chest pain, shortness breath or palpitations. They have been ambulating with the room, however, has not tried stairs. They deny any nausea, vomiting, diarrhea, or urinary discomfort. Objective: Vitals (See below) General: Sitting up in sofa, appears to be comfortable, not in any acute distress AAOx3 HEENT: NC, AT CVS: +S1S2 Lungs: Fair air entry b/l, no appreciable wheezing, rhonchi, rales Abdomen: Soft, ND, NT Extremities: Lower extremity edema appears to be 1+ improved compared to yesterd ay, - Calf tenderness Imaging: CXR 09/15: Mild right basilar fibro atelectatic change. Assessment and plan: Shortness of breath with exertion / LE edema - likely 2/2 CHF exacerbation - possibly 2/2 A. fib - Patient reports that her shortness of breath has been doing better - Lower extremity edema has improved - Elevated BNP - CXR noted above - Strict ins/outs, daily weights, fluid restriction - ECHO complete; report pending - Will give additional dose of Furosemide IV today; will start PO diuretics tomorro w - c/w Telemetry monitoring - Will perform home safety evaluation today A. fib; s/p RVR - Remains asymptomatic - Heart rate is well controlled this morning - Troponin trend is negative - EKG reviewed - s/p Metoprolol tartrate 5mg IV in ER - c/w Flecainde and Metoprolol; home regimen - c/w Full anticoagulation with Xarelto HTN - BP well controlled - c/w Metoprolol with holding parameters - Will continue to hold Amlodipine / Lisinopril - c/w Furosemide Reported CAD (no stents / PA) - She reports that she has stress test 2018; reported to be negative - Has not required any cardiac catheterization Hypothyroidism - c/w levothyroxine Rosacea - c/w topical metronidazole Glaucoma - s/p surgical correction Vitamin D deficiency - c/w supplementation DVT prophylaxis - c/w full anticoagulation with Xarelto Disposition: - Anticipate discharge within 24 hours VS,Ernestobone, I+O VS, Fishbone, I+O Laboratory Tests 09/15/20 10:36 09/16/20 05:01 Vital Signs Date Time Temp Pulse Resp B/P (MAP) Pulse Ox O2 Delivery O2 Flow Rate FiO2 09/16/20 08:00 97.7 56 16 134/63 (86) 95 Room Air I&O- Last 24 Hours up to 6 AM 09/16/20 06:00 Intake Total 240 ml Output Total 300 ml Balance -60 ml SONIA NORMAN MD Sep 16, 2020 10:08
[2020-09-16 12:00] VITALS: BP 103/55
[2020-09-16 16:00] VITALS: BP 114/56
[2020-09-16] MEDS: RIVAROXABAN 20 MG TAB (XARELTO) PO SCH (16:57)
[2020-09-16 21:00] VITALS: BP 112/56
[2020-09-16] MEDS: METOPROLOL SUCC (TopROL XL) 100MG *XL* TAB PO SCH (21:00)
[2020-09-16] MEDS: MAGNESIUM OXIDE 400MG TAB (MAG-OX) PO SCH (21:01)
[2020-09-17] VITALS: BP 115/57
[2020-09-17 04:00] VITALS: BP 124/57
[2020-09-17] MEDS: LEVOTHYROXINE 100MCG TABLET (0.1MG) PO SCH (05:47)
[2020-09-17 05:57] LABS: BASO # 0.1 10^3/uL (0.0-0.2); BASO % 0.7 % (0.0-1.0); EOS # 0.3 10^3/uL (0.0-0.5); EOS % 3.6 % (0.0-3.0); HEMATOCRIT 34.1 % (36.0-47.0); HEMOGLOBIN 10.8 g/dl (12.0-15.5); LYMPH # 1.6 10^3/uL (1.5-5.0); LYMPH % 20.5 % (24.0-44.0); MEAN CORPUSCULAR HEMOGLOBIN 29.5 pg (27.0-33.0); MEAN CORPUSCULAR HGB CONC 31.7 g/dl (32.0-36.5); MEAN CORPUSCULAR VOLUME 93.2 fl (80.0-96.0); MONO % 12.5 % (2.0-8.0); NEUTROPHILS # 4.8 10^3/uL (1.5-8.5); NEUTROPHILS % 62.3 % (36.0-66.0); PLATELET COUNT, AUTOMATED 254 10^3/uL (150-450); RED BLOOD COUNT 3.66 10^6/uL (4.00-5.40); WHITE BLOOD COUNT 7.7 10^3/uL (4.0-10.0)
[2020-09-17 06:19] LABS: CALCIUM LEVEL 8.6 MG/DL (8.8-10.2); CREATININE FOR GFR 1.37 MG/DL (0.55-1.30); GLOMERULAR FILTRATION RATE 39.6 (>39); MAGNESIUM LEVEL 2.5 MG/DL (1.8-2.4); POTASSIUM SERUM 4.4 MEQ/L (3.5-5.1)
[2020-09-17 08:00] VITALS: BP 144/67
[2020-09-17] MEDS: VITAMIN D (CHOLECALCIFEROL) 400 INTERNATIONAL UNITS TAB PO SCH (09:18)
[2020-09-17] MEDS: FLECAINIDE 50MG TABLET PO SCH (09:18)
[2020-09-17] MEDS: DOCUSATE SODIUM 100MG CAPSULE PO SCH (09:18)
[2020-09-17] MEDS: OMEGA-3 1000MG CAPSULE PO SCH (09:18)
[2020-09-17] MEDS: LORATADINE 10 MG TAB PO SCH (09:18)
[2020-09-17] MEDS ORDERED: FURO20TA2 PO (09:25)
--- NOTE | 2020-09-17 09:42 | DS.PDOC ---
Discharge Summary General Date of Admission Sep 15, 2020 at 15:47 Date of Discharge 09/17/2020 Discharge Summary PROCEDURES PERFORMED DURING STAY: [None]. ADMITTING DIAGNOSES / DISCHARGE DIAGNOSES: s/p Shortness of breath with exertion / LE edema - likely 2/2 CHF exacerbation - possibly 2/2 A. fib A. fib; s/p RVR HTN Reported CAD (no stents / PR) Hypothyroidism Rosacea Glaucoma Vitamin D deficiency DVT prophylaxis COMPLICATIONS/CHIEF COMPLAINT: LE edema HISTORY OF PRESENT ILLNESS: Patient is a 79 year old female with a PMHx of A fib (on Flecainide / Metoprolol / Xarelto), HTN, Reported CAD (no stents / PR), Hypothyroidism, Rosacea, Glaucoma, GERD who presented to emergency room with complaints of shortness of breath with exertion. Patent keeps a careful log of her blood pressures and heart rates. She showed me that her blood pressure has generally run in the upper 90s to low 100s most of the time and her heart rate is in the 60s over last few days, her heart rate has been greater than 100 and blood pressure have been in 140s. Patient was admitted to the hospital service for evaluation and treatment. HOSPITAL COURSE: s/p Shortness of breath with exertion / LE edema - likely 2/2 CHF exacerbation - possibly 2/2 A. fib - Edema has improved. Patient has been able to ambulate without any difficulty is cleared physical therapy - Elevated BNP - CXR noted above - Strict ins/outs, daily weights, fluid restriction - ECHO complete; report pending; will have outpatient follow-up with cardiology tomorrow - s/p Furosemide; will start low dose Furosemide 20 PO starting on 09/18 (re: elevated Cr today) - c/w Telemetry monitoring - Cleared home safety evaluation A. fib; s/p RVR - Has not experience any chest pain, palpitations - Troponin trend is negative - EKG reviewed - s/p Metoprolol tartrate 5mg IV in ER - c/w Flecainide and Metoprolol; home regimen - c/w Full anticoagulation with Xarelto HTN - BP well controlled - c/w Metoprolol with holding parameters - s/p Amlodipine / Lisinopril - will discontinue use; BP remains well controlled without it - s/p Furosemide; will start low dose Furosemide 20 PO starting on 09/18 (re: elevated Cr) Reported CAD (no stents / PR) - She reports that she has stress test 2018; reported to be negative - Has not required any cardiac catheterization Hypothyroidism - c/w levothyroxine Rosacea - c/w topical metronidazole Glaucoma - s/p surgical correction Vitamin D deficiency - c/w supplementation DVT prophylaxis - c/w full anticoagulation with Xarelto DISCHARGE MEDICATIONS: Please see below. ALLERGIES: Please see below. PHYSICAL EXAMINATION ON DISCHARGE: Vitals (See below) General: Patient is sitting up in a chair at the bedside, does not appear to be in any distress, comfortable, awake and alert, oriented 3 HEENT: NC, AT CVS: +S1S2 Lungs: There does not appear to be any auscultated crackles, wheezing, rhonchi Abdomen: Soft, nondistended and nontender Extremities: Lower extremity edema has improved. Trace edema still exists LABORATORY DATA: Please see below. IMAGING: CXR 09/15: Mild right basilar fibro atelectatic change. ACTIVITY: [As tolerated]. DISCHARGE PLAN: Follow-up with Dr. Melton tomorrow Follow-up with primary care provider within the next 7 days Remain compliant with treatment plan and medications Return to the ER if you experience any problems DISPOSITION: Home with services DISCHARGE CONDITION: [Stable]. TIME SPENT ON DISCHARGE: 35 minutes. Vital Signs/I&Os Vital Signs Date Time Temp Pulse Resp B/P (MAP) Pulse Ox O2 Delivery O2 Flow Rate FiO2 09/17/20 08:00 97.0 55 16 144/67 (92) 96 Room Air I&O- Last 24 Hours up to 6 AM 09/17/20 06:00 Intake Total 1260 ml Output Total 660 ml Balance 600 ml Laboratory Data Labs 24H Laboratory Tests 2 09/17/20 05:46: Immature Granulocyte % (Auto) 0.4, Neutrophils (%) (Auto) 62.3, Lymphocytes (%) (Auto) 20.5L, Monocytes (%) (Auto) 12.5H, Eosinophils (%) (Auto) 3.6H, Basophils (%) (Auto) 0.7, Neutrophils # (Auto) 4.8, Lymphocytes # (Auto) 1.6, Monocytes # (Auto) 1.0H, Eosinophils # (Auto) 0.3, Basophils # (Auto) 0.1, Nucleated Red Blood Cells % (auto) 0.0, Anion Gap 4L, Glomerular Filtration Rate 39.6, Calcium Level 8.6L, Magnesium Level 2.5H CBC/BMP Laboratory Tests 09/17/20 05:46 Discharge Medications Scheduled Cholecalciferol (Vitamin D3) (Vitamin D-400) 10 Mcg Tablet, 400 UNITS PO BID, (Reported) Flecainide Acetate (Flecainide Acetate) 50 Mg Tablet, 50 MG PO BID, (Reported) Furosemide (Furosemide) 20 Mg Tablet, 1 TAB PO DAILY To be started on 09/18/2020 AM Glucosam/Chond-MSM 2/C/D3/Galo (Udlfxfpppl-Fnfexfnwjyz-GXL Tab) 1 Each Tablet, 1 TAB PO DAILY, (Reported) Levothyroxine Sodium (Levothyroxine Sodium) 100 Mcg Tab, 100 MCG PO DAILY, (Rep orted) Loratadine (Loratadine) 10 Mg Tab, 10 MG PO DAILY, (Reported) Magnesium Oxide (Magnesium Oxide) 400 Mg Tab, 400 MG PO QHS, (Reported) Metoprolol Succinate (Toprol Xl) 200 Mg Tab, 200 MG PO QHS, (Reported) Metronidazole (Metronidazole) 60 Gm Gel..gram., 1 DOSE TOP QHS, (Reported) APPLY TO FACE [place]-3 Fatty Acids/Fish Oil (Fish Oil 1,000 mg Capsule) 1 Each Capsule, 1,000 MG PO BID, (Reported) Rivaroxaban (Xarelto) 20 Mg Tablet, 20 MG PO QPM, (Reported) Vit A/Vit C/Vit E/Zinc/Copper (Preservision Areds Softgel) 1 Cap Cap, 1 CAP PO BID, (Reported) Allergies Coded Allergies: levofloxacin (Verified Allergy, Unknown, 06/28/19) SONIA NORMAN MD Sep 17, 2020 09:42
[2020-09-17 12:00] VITALS: BP 131/77
--- NOTE | 2020-09-18 11:46 | ECHO ---
DATE OF PROCEDURE: 09/15/2020 Age: 79 Gender: Female REFERRING PHYSICIAN: Cynthia Maciel M.D. PATIENT LOCATION: Room 3228. REASON FOR STUDY: Shortness of breath, atrial flutter/fib. 2D MEASUREMENTS: IVS 1.1 cm LV 4.5 cm LVPW 1.1 cm LA 4.4 cm Aorta 3.7 cm RV 3.2 cm Ascending aorta 3.9 cm IVC 1.9 cm DOPPLER MEASUREMENT Peak velocity across the aortic valve 1.1 m/s Peak velocity across the LVOT 0.85 m/s Mitral E 1.2 Maximum tricuspid valve velocity 2.5 m/s 2D COMMENTS: 1. Normal left ventricular size, wall thickness, and normal global left ventricular systolic function. The estimated left ventricular systolic ejection fraction is 60% to 65%. 2. Mildly enlarged left atrium. Normal right atrium and right ventricle. 3. The atrial septum appeared to be normal without evidence of defect or shunt. 4. Borderline enlarged aortic root. The ascending aorta is mildly dilated at 3.9 cm. 5. No pericardial effusion seen. 6. Mildly calcified aortic valve with normal leaflet excursion. Normal mitral valve, tricuspid valve, and pulmonic valve. The proximal pulmonary artery branches were not well visualized. 7. The inferior vena cava as mildly enlarged, central venous pressure is most likely enlarged. DOPPLER: Detects moderate mitral regurgitation, mild tricuspid regurgitation, mild pulmonic regurgitation. The calculated pulmonary artery systolic pressure varies between 30 to 40 mmHg. Assessment of the left ventricular diastolic function was limited in view of the underlying atrial fibrillation. IMPRESSION: 1. Normal global left ventricular systolic function. Assessment of the left ventricular diastolic function was limited in view of the underlying cardiac arrhythmias. 2. Aortic valve sclerosis without stenosis or aortic regurgitation. 3. Moderate mitral regurgitation with a mildly enlarged left atrium. 4. Mild tricuspid regurgitation with mild pulmonary hypertension. 5. Mild pulmonic regurgitation. 6. Patient was in atrial fibrillation during the test. 7. Borderline enlarged aortic root. Mildly dilated ascending aorta. MTDD
== END 2020-09-17 13:10 | disposition home or self-care (01) | DRG 293 ==
LOC: M ED 10:07 → M ED INP 15:47 → ENRESERV 16:57 → M PCU 18:28
PROVIDERS: ADMIT Internal Medicine; ATTEND Internal Medicine
DX: I11.0 Hypertensive heart disease with heart failure (principal); I50.9 Heart failure, unspecified; I25.10 Atherosclerotic heart disease of native coronary artery without angina pectoris; E03.9 Hypothyroidism, unspecified; I48.91 Unspecified atrial fibrillation; E55.9 Vitamin D deficiency, unspecified; L71.9 Rosacea, unspecified; H40.9 Unspecified glaucoma; K21.9 Gastro-esophageal reflux disease without esophagitis; Z79.899 Other long term (current) drug therapy; Z88.8 Allergy status to other drugs, medicaments and biological substances; I25.2 Old myocardial infarction

== ENCOUNTER → 2020-09-25 | Outpatient (REF) | payer MEDICARE, BC ==
[~2020-09-25] MED LIST changes: +D-40TAB2 PO; +FURO20TA2 PO; +RA G1TAB11 PO; +SPIR-10 PO
[2020-09-25 12:00] LABS: CALCIUM LEVEL 9.5 MG/DL (8.8-10.2); CREATININE FOR GFR 1.23 MG/DL (0.55-1.30); GLOMERULAR FILTRATION RATE 44.8 (>39); POTASSIUM SERUM 4.1 MEQ/L (3.5-5.1)
== END ==
LOC: M PLALAB 08:05
PROVIDERS: ATTEND Internal Medicine
DX: I10 Essential (primary) hypertension (principal)

== ENCOUNTER → 2020-11-09 | Outpatient (REF) | payer MEDICARE, BC ==
[2020-11-09 11:03] LABS: BASO # 0.1 10^3/uL (0.0-0.2); BASO % 0.6 % (0.0-1.0); EOS # 0.3 10^3/uL (0.0-0.5); EOS % 3.4 % (0.0-3.0); HEMATOCRIT 39.5 % (36.0-47.0); HEMOGLOBIN 12.6 g/dl (12.0-15.5); LYMPH # 1.3 10^3/uL (1.5-5.0); LYMPH % 16.8 % (24.0-44.0); MEAN CORPUSCULAR HEMOGLOBIN 29.6 pg (27.0-33.0); MEAN CORPUSCULAR HGB CONC 31.9 g/dl (32.0-36.5); MEAN CORPUSCULAR VOLUME 92.9 fl (80.0-96.0); MONO # 0.8 10^3/uL (0.0-0.8); MONO % 10.3 % (2.0-8.0); NEUTROPHILS # 5.5 10^3/uL (1.5-8.5); NEUTROPHILS % 68.4 % (36.0-66.0); PLATELET COUNT, AUTOMATED 290 10^3/uL (150-450); RED BLOOD COUNT 4.25 10^6/uL (4.00-5.40)
[2020-11-09 11:19] LABS: HEMOGLOBIN A1c 5.5 %
[2020-11-09 11:36] LABS: ALBUMIN 3.6 GM/DL (3.2-5.2); ALT/SGPT 26 U/L (12-78); BILIRUBIN,TOTAL 0.5 MG/DL (0.2-1.0); BLOOD UREA NITROGEN 21 MG/DL (7-18); CALCIUM LEVEL 9.1 MG/DL (8.8-10.2); CARBON DIOXIDE LEVEL 31 MEQ/L (21-32); CHLORIDE LEVEL 104 MEQ/L (98-107); CHOLESTEROL LEVEL 224 MG/DL (<200); CHOLESTEROL RISK RATIO 2.516 (<5); CREATININE FOR GFR 1.06 MG/DL (0.55-1.30); GLOMERULAR FILTRATION RATE 53.1 (>32); GLUCOSE, FASTING 104 MG/DL (70-100); HDL CHOLESTEROL 89 MG/DL (>40); LDL CHOLESTEROL 122 MG/DL (<100); MAGNESIUM LEVEL 2.2 MG/DL (1.8-2.4); NON-HDL-C 135 MG/DL; SODIUM LEVEL 140 MEQ/L (136-145); TRIGLYCERIDES LEVEL 63 MG/DL (<150)
== END ==
LOC: M PLALAB 07:52
PROVIDERS: ATTEND Internal Medicine
DX: I25.10 Atherosclerotic heart disease of native coronary artery without angina pectoris (principal); I10 Essential (primary) hypertension; M17.12 Unilateral primary osteoarthritis, left knee; R73.01 Impaired fasting glucose; Z11.59 Encounter for screening for other viral diseases
CPT/HCPCS: 36415; 80053; 80061; 83036; 83735; 85025; G0472

== ENCOUNTER 2021-02-16 12:58 | Outpatient (CLI) | payer MEDICARE, BC ==
[~2021-02-16] VITALS: Ht 160 cm; Wt 86.9 kg
[~2021-02-16 12:58] MED LIST changes: +ALBUTEROL 90 MCG/ACT 8GM HFA INHALER INH PRN; +ALBUTEROL SULFATE 2.5 MG/0.5 ML INH NEB SOLN INH PRN; +EPINEPHrine INJ 1 MG/ML 1ML AMP IM PRN; +NS 1,000 ML IV SCH; +diphenhydrAMINE 50MG/ML VIAL (J1200) IV PRN; +methylPREDNISolone 125MG 2ML VIAL IV PRN
[2021-02-16 13:22] VITALS: BP 136/86
[2021-02-16] MEDS ORDERED: ACETAMINOPHEN TAB 650MG DOSE (2X325MG) PO ONE (14:00)
[2021-02-16] MEDS ORDERED: CASIRIVIMAB/IMDEVIMAB 1,200 MG in NS 250 ML IV ONE (14:00)
[2021-02-16 14:35] VITALS: BP 155/67
[2021-02-16 14:59] VITALS: BP 162/67
[2021-02-16 15:30] VITALS: BP 132/59
[2021-02-16 16:43] VITALS: BP 145/66
== END 2021-02-16 17:01 ==
LOC: M OPCLI4PR 12:58 → M OPCLI4 12:58 → M 4MAIN 13:01 → M OPCLI4 17:01
PROVIDERS: ATTEND Physician Assistant
DX: U07.1 COVID-19 (principal); Z88.1 Allergy status to other antibiotic agents

== ENCOUNTER → 2021-03-09 | Outpatient (CLI) | payer MEDICARE, BC ==
[~2021-03-09] MED LIST changes: -ALBUTEROL 90 MCG/ACT 8GM HFA INHALER INH PRN; -ALBUTEROL SULFATE 2.5 MG/0.5 ML INH NEB SOLN INH PRN; -EPINEPHrine INJ 1 MG/ML 1ML AMP IM PRN; -NS 1,000 ML IV SCH; -diphenhydrAMINE 50MG/ML VIAL (J1200) IV PRN; -methylPREDNISolone 125MG 2ML VIAL IV PRN
--- NOTE | 2021-03-09 13:19 | REPMRS ---
Patient History The patient states she has not had a clinical breast exam in over a year. Patient is postmenopausal. Family history of breast cancer at age 50 or over and endometrial cancer at age 50 or over in mother, breast cancer at age 50 or over in maternal grandmother. Patient states no breast complaints today. Patient has signed MRS History Sheet. Digital Woman Screen Mammo: March 09, 2021 - Exam #: [id number] Bilateral CC and MLO view(s) were taken. Technologist: Tamiko Meyer, Technologist Prior study comparison: March 15, 2019, bilateral digital mammo screening bilat, performed at [facility]. April 02, 2017, bilateral digital mammo screening bilat, performed at [facility]. FINDINGS: There are scattered fibroglandular densities. Screening. Digital screening (2D) mammography was performed bilaterally in the CC and MLO projections. Additionally, breast tomosynthesis (3D mammography) was performed bilaterally in the CC and MLO projections. Todays exam was compared to the prior exam/exams. By history, the patient has no complaints of a palpable breast abnormality or other significant breast complaints. The breasts are unchanged in size and shape. There are no paula-soft tissue densities or spiculated masses. There is no internal architectural distortion.Once again, stable benign appearing calcifications are seen. There are no suspicious paula-calcific clusters. Skin thickening or nipple retraction is not present. IMPRESSION: BI-RADS Category 2- Benign Findings. There is no evidence of malignant alteration of the breasts. Followup examination recommended in one year. The Volpara volumetric breast density category is B, there are scattered areas of fibroglandular densities. This mammogram was read with the assistance of [facility],an FDA approved computer aided detection system for mammography. The lifetime Tyrer-Cuzick score is 5.6 % Negative x-ray reports should not delay surgical consultation if a dominant or clinically suspicious mass is present. Not all breast cancers can be identified by mammography. Therefore, we recommend that you continue to perform regular breast self-examination and physical examination and then promptly contact your physician of any concerns or changes. Adenosis and dense breasts may obscure an underlying neoplasm. Assessment: BI-RADS/ACR category 2 mammogram. Benign Findings. Recommendation Routine screening mammogram of both breasts in 1 year. Electronically Signed By: Asif Jackson DO 03/09/21 0247
--- NOTE | 2021-03-09 14:13 | DEXAMM ---
INDICATION: SCREENING FOR OSTEOPOROSIS. COMPARISON: May 13, 2013. TECHNIQUE: Bone density was measured using dual-energy x-ray absorptionmetry (DEXA). FINDINGS: AP SPINE L1-L4 BMD 1.514 g/cm2 Young Adult T-Score 2.6 Age Matched Z-Score 4.4. LT FEMUR, TOTAL BMD 1.026 g/cm2 Young Adult T-Score 0.1 Age Matched Z-Score 2.2. LT NECK BMD 1.044 g/cm2 Young Adult T-Score 0.0 Age Matched Z-Score 2.2. RT FEMUR, TOTAL BMD 0.943 g/cm2 Young Adult T-Score -0.5 Age Matched Z-Score 1.5. RT NECK BMD 0.969 g/cm2 Young Adult T-Score -0.5 Age Matched Z-Score 1.7. IMPRESSION: There is normal bone density of the spine. There is normal bone density of the left hip. There is normal bone density of the right hip. The density of the spine has increased 26.4% since the initial exam on March 15, 1999. The density of the spine increased 12.3% since most recent exam on May 13, 2013. The density of the left hip has increased 2.6% since initial exam on March 15 07/28/1998. The density of the left hip has increased 0.6% since most recent exam on May 13, 2013. The density of the right hip has decreased 7.6% since the initial exam on March 17, 2008. The density of the right hip has decreased 4.9% since the most recent exam on May 13, 2013. FOLLOW-UP: Recommendation for the next bone density exam: 5-10 years. <Electronically signed by Hunter Sky > 03/09/21 0182
== END ==
LOC: M WHC 12:05
PROVIDERS: ATTEND Internal Medicine
DX: Z12.31 Encounter for screening mammogram for malignant neoplasm of breast (principal); Z13.820 Encounter for screening for osteoporosis; Z78.0 Asymptomatic menopausal state; Z80.3 Family history of malignant neoplasm of breast

== ENCOUNTER → 2021-05-29 | Outpatient (CLI) | payer MEDICARE, BC ==
[2021-05-29 11:55] LABS: ALBUMIN 3.8 GM/DL (3.2-5.2); BILIRUBIN,TOTAL 0.6 MG/DL (0.2-1.0); CALCIUM LEVEL 9.2 MG/DL (8.8-10.2); CHOLESTEROL RISK RATIO 2.19 (<5); CREATININE FOR GFR 1.05 MG/DL (0.55-1.30); GLOMERULAR FILTRATION RATE 53.7 (>32); MAGNESIUM LEVEL 2.5 MG/DL (1.8-2.4); POTASSIUM SERUM 4.1 MEQ/L (3.5-5.1); THYROID STIMULATING HORMONE 4.38 uIU/ML (0.358-3.740); TOTAL PROTEIN 7.2 GM/DL (6.4-8.2)
== END ==
LOC: M PLALAB 08:05
PROVIDERS: ATTEND Internal Medicine
DX: I10 Essential (primary) hypertension (principal); E03.9 Hypothyroidism, unspecified; R73.01 Impaired fasting glucose

== ENCOUNTER → 2021-11-27 | Outpatient (CLI) | payer MEDICARE, BC ==
[2021-11-27 10:55] LABS: BASO # 0.1 10^3/uL (0.0-0.2); BASO % 0.7 % (0.0-1.0); EOS # 0.3 10^3/uL (0.0-0.5); HEMATOCRIT 35.7 % (36.0-47.0); HEMOGLOBIN 11.2 g/dl (12.0-15.5); LYMPH # 1.4 10^3/uL (1.5-5.0); LYMPH % 17.2 % (24.0-44.0); MEAN CORPUSCULAR HGB CONC 31.4 g/dl (32.0-36.5); MEAN CORPUSCULAR VOLUME 92.5 fl (80.0-96.0); MONO # 0.8 10^3/uL (0.0-0.8); MONO % 10.3 % (2.0-8.0); NEUTROPHILS # 5.5 10^3/uL (1.5-8.5); NEUTROPHILS % 67.6 % (36.0-66.0); PLATELET COUNT, AUTOMATED 302 10^3/uL (150-450); RED BLOOD COUNT 3.86 10^6/uL (4.00-5.40); WHITE BLOOD COUNT 8.1 10^3/uL (4.0-10.0)
[2021-11-27 11:07] LABS: HEMOGLOBIN A1c 5.6 %
[2021-11-27 11:42] LABS: CREATININE, URINE 54.2 MG/DL; MALB URINE SIEMENS 7.2 MG/L; MAU/CREAT RATIO 13.2 MCG/MG (0.0-30.0)
[2021-11-27 12:00] LABS: BILIRUBIN,TOTAL 0.3 MG/DL (0.2-1.0); CALCIUM LEVEL 8.8 MG/DL (8.8-10.2); CREATININE FOR GFR 1.25 MG/DL (0.55-1.30); GLOMERULAR FILTRATION RATE 43.8 (>32); POTASSIUM SERUM 4.6 MEQ/L (3.5-5.1)
[2021-11-27 12:01] LABS: ALBUMIN 3.4 GM/DL (3.2-5.2); CHOLESTEROL RISK RATIO 2.53 (<5); MAGNESIUM LEVEL 2.7 MG/DL (1.8-2.4); THYROID STIMULATING HORMONE 2.01 uIU/ML (0.358-3.740); TOTAL PROTEIN 6.4 GM/DL (6.4-8.2)
== END ==
LOC: M PLALAB 08:49
PROVIDERS: ATTEND Internal Medicine
DX: I10 Essential (primary) hypertension (principal); E03.9 Hypothyroidism, unspecified; I25.10 Atherosclerotic heart disease of native coronary artery without angina pectoris; R73.01 Impaired fasting glucose

== ENCOUNTER → 2022-05-24 | Outpatient (CLI) | payer MEDICARE, BC ==
[2022-05-24 15:19] LABS: HEMATOCRIT 33.1 % (36.0-47.0); HEMATOCRIT 33.4 % (36.0-47.0); HEMOGLOBIN 10.4 g/dl (12.0-15.5); MEAN CORPUSCULAR HEMOGLOBIN 29.6 pg (27.0-33.0); MEAN CORPUSCULAR HGB CONC 31.4 g/dl (32.0-36.5); MEAN CORPUSCULAR VOLUME 94.3 fl (80.0-96.0); PLATELET COUNT, AUTOMATED 277 10^3/uL (150-450); RED BLOOD COUNT 3.51 10^6/uL (4.00-5.40); WHITE BLOOD COUNT 7.9 10^3/uL (4.0-10.0)
[2022-05-24 15:33] LABS: CALCIUM LEVEL 8.8 MG/DL (8.3-10.6); CREATININE FOR GFR 1.29 MG/DL (0.55-1.30); GLOMERULAR FILTRATION RATE 42.2 (>32); POTASSIUM SERUM 4.7 MMOL/L (3.5-5.1)
[2022-05-24 15:35] LABS: PERCENT SATURATION 15.7 % (13.2-45.0)
[2022-05-24 15:38] LABS: FERRITIN 12.2 NG/ML (7.3-270.7)
== END ==
LOC: M PLALAB 14:23
PROVIDERS: ATTEND Internal Medicine
DX: D64.9 Anemia, unspecified (principal)

== ENCOUNTER → 2022-06-25 | Outpatient (CLI) | payer MEDICARE, BC ==
[2022-06-25 18:02] LABS: BASO # 0.1 10^3/uL (0.0-0.2); BASO % 0.7 % (0.0-1.0); EOS # 0.4 10^3/uL (0.0-0.5); EOS % 4.5 % (0.0-3.0); HEMOGLOBIN 10.8 g/dl (12.0-15.5); LYMPH # 1.8 10^3/uL (1.5-5.0); LYMPH % 21.4 % (24.0-44.0); MEAN CORPUSCULAR HEMOGLOBIN 30.1 pg (27.0-33.0); MEAN CORPUSCULAR HGB CONC 31.8 g/dl (32.0-36.5); MEAN CORPUSCULAR VOLUME 94.7 fl (80.0-96.0); MONO # 0.8 10^3/uL (0.0-0.8); MONO % 9.8 % (2.0-8.0); NEUTROPHILS # 5.3 10^3/uL (1.5-8.5); NEUTROPHILS % 63.1 % (36.0-66.0); PLATELET COUNT, AUTOMATED 248 10^3/uL (150-450); RED BLOOD COUNT 3.59 10^6/uL (4.00-5.40); WHITE BLOOD COUNT 8.4 10^3/uL (4.0-10.0)
== END ==
LOC: M PLALAB 15:16
PROVIDERS: ATTEND Internal Medicine
DX: D64.9 Anemia, unspecified (principal)

== ENCOUNTER → 2022-07-26 | Outpatient (CLI) | payer MEDICARE, BC ==
[2022-07-26 17:09] LABS: HEMATOCRIT 35.7 % (36.0-47.0); HEMOGLOBIN 11.2 g/dl (12.0-15.5); MEAN CORPUSCULAR HEMOGLOBIN 29.6 pg (27.0-33.0); MEAN CORPUSCULAR HGB CONC 31.4 g/dl (32.0-36.5); MEAN CORPUSCULAR VOLUME 94.2 fl (80.0-96.0); PLATELET COUNT, AUTOMATED 275 10^3/uL (150-450); RED BLOOD COUNT 3.79 10^6/uL (4.00-5.40); WHITE BLOOD COUNT 8.9 10^3/uL (4.0-10.0)
[2022-07-26 17:33] LABS: CALCIUM LEVEL 8.8 MG/DL (8.3-10.6); CREATININE FOR GFR 1.31 MG/DL (0.55-1.30); GLOMERULAR FILTRATION RATE 41.5 (>32); POTASSIUM SERUM 5.5 MMOL/L (3.5-5.1)
== END ==
LOC: M PLALAB 15:11
PROVIDERS: ATTEND Internal Medicine
DX: D64.9 Anemia, unspecified (principal)

== ENCOUNTER → 2022-10-21 | Outpatient (CLI) | payer MEDICARE, BC ==
[~2022-10-21] MED LIST changes: -COSO1SOL2 OU; +DORZ1DRO6 OU
[2022-10-21 16:59] LABS: BASO # 0.1 10^3/uL (0.0-0.2); BASO % 0.7 % (0.0-1.0); EOS # 0.4 10^3/uL (0.0-0.5); EOS % 4.1 % (0.0-3.0); HEMATOCRIT 33.8 % (36.0-47.0); HEMOGLOBIN 10.9 g/dl (12.0-15.5); LYMPH # 1.6 10^3/uL (1.5-5.0); LYMPH % 18.2 % (24.0-44.0); MEAN CORPUSCULAR HEMOGLOBIN 30.1 pg (27.0-33.0); MEAN CORPUSCULAR HGB CONC 32.2 g/dl (32.0-36.5); MEAN CORPUSCULAR VOLUME 93.4 fl (80.0-96.0); MONO # 0.9 10^3/uL (0.0-0.8); MONO % 10.2 % (2.0-8.0); NEUTROPHILS # 5.8 10^3/uL (1.5-8.5); NEUTROPHILS % 66.5 % (36.0-66.0); PLATELET COUNT, AUTOMATED 273 10^3/uL (150-450); RED BLOOD COUNT 3.62 10^6/uL (4.00-5.40); WHITE BLOOD COUNT 8.7 10^3/uL (4.0-10.0)
[2022-10-21 17:22] LABS: ALBUMIN 3.3 G/DL (3.2-5.2); ALKALINE PHOSPHATASE 129 U/L (46-116); ALT/SGPT 25 U/L (7.0-40); AST/SGOT < 8 U/L (<34); BILIRUBIN,TOTAL 0.3 MG/DL (0.3-1.2); BLOOD UREA NITROGEN 48 MG/DL (9-23); CARBON DIOXIDE LEVEL 28 MMOL/L (20-31); CHLORIDE LEVEL 105 MMOL/L (98-107); CHOLESTEROL LEVEL 181 MG/DL (<200); CHOLESTEROL RISK RATIO 2.44 (<5); CREATININE FOR GFR 1.52 MG/DL (0.55-1.30); GLOMERULAR FILTRATION RATE 34.9 (>32); GLUCOSE, FASTING 123 MG/DL (74-106); HDL CHOLESTEROL 74.1 MG/DL (>40); LDL CHOLESTEROL 86.1 MG/DL (<100); NON-HDL-C 106.9 MG/DL; POTASSIUM SERUM 4.8 MMOL/L (3.5-5.1); SODIUM LEVEL 139 MMOL/L (136-145); TOTAL PROTEIN 6.1 G/DL (5.7-8.2); TRIGLYCERIDES LEVEL 104 MG/DL (<150)
[2022-10-21 17:23] LABS: THYROID STIMULATING HORMONE 3.671 uIU/ML (0.55-4.78)
== END ==
LOC: M PLALAB 14:45
PROVIDERS: ATTEND Internal Medicine
DX: E78.5 Hyperlipidemia, unspecified (principal); I10 Essential (primary) hypertension; E03.9 Hypothyroidism, unspecified

== ENCOUNTER → 2023-04-30 | Outpatient (CLI) | payer MEDICARE, BC | LOC: M WHC 15:01 | PROVIDERS: ATTEND Internal Medicine | DX: Z12.31 Encounter for screening mammogram for malignant neoplasm of breast (principal) ==

== ENCOUNTER 2023-09-03 15:04 | Observation (INO) | payer MEDICARE, BC ==
[~2023-09-03] VITALS: Ht 157.5 cm; Wt 81.0 kg
[~2023-09-03 15:04] MED LIST changes: +METO200T15 PO; -METO200T28 PO
[2023-09-03] MEDS ORDERED: LISI10TA22 (15:28)
[2023-09-03] MEDS ORDERED: AMLO1TAB24 (15:28)
[2023-09-03 16:48] LABS: BASO % 0.4 % (0.0-1.0); EOS # 0.2 10^3/uL (0.0-0.5); HEMOGLOBIN 7.2 g/dl (12.0-15.5); LYMPH # 1.3 10^3/uL (1.5-5.0); LYMPH % 12.7 % (24.0-44.0); MEAN CORPUSCULAR HGB CONC 31.3 g/dl (32.0-36.5); MEAN CORPUSCULAR VOLUME 102.2 fl (80.0-96.0); MONO # 0.8 10^3/uL (0.0-0.8); MONO % 8.4 % (2.0-8.0); NEUTROPHILS # 7.5 10^3/uL (1.5-8.5); NEUTROPHILS % 75.9 % (36.0-66.0); PLATELET COUNT, AUTOMATED 279 10^3/uL (150-450); RED BLOOD COUNT 2.25 10^6/uL (4.00-5.40); WHITE BLOOD COUNT 9.8 10^3/uL (4.0-10.0)
[2023-09-03 17:02] LABS: ALBUMIN 3.2 G/DL (3.2-5.2); BILIRUBIN,TOTAL 0.3 MG/DL (0.3-1.2); CALCIUM LEVEL 8.6 MG/DL (8.3-10.6); CREATININE FOR GFR 1.44 MG/DL (0.55-1.30); GLOMERULAR FILTRATION RATE 37.1 (>32); POTASSIUM SERUM 5.2 MMOL/L (3.5-5.1); TOTAL PROTEIN 5.9 G/DL (5.7-8.2)
[2023-09-03 18:47] LABS: RSV AMPLIFICATION NEGATIVE (NEGATIVE)
[2023-09-03 19:12] LABS: CK-MB VALUE MASS 1.5 NG/ML (<3.6)
[2023-09-03 19:16] LABS: MB/CK RELATIVE INDEX 2.67 (< OR =4); PERCENT SATURATION 14.4 % (13.2-45.0)
[2023-09-03 19:55] VITALS: BP 148/69; TEMP 98; O2SAT 97
[2023-09-03] MEDS ORDERED: ONDANSETRON 4MG 2ML VIAL IV PRN (19:55)
[2023-09-03 20:10] VITALS: BP 142/63; TEMP 97.1; O2SAT 97
[2023-09-03 21:10] VITALS: BP 120/57; TEMP 96.7; O2SAT 98
[2023-09-03 21:30] VITALS: BP 130/60; TEMP 97.2; O2SAT 97
[2023-09-03] MEDS: PANTOPRAZOLE 40MG VIAL IV SCH (21:53)
[2023-09-03] MEDS: NS 1,000 ML IV SCH (21:53)
[2023-09-03] MEDS ORDERED: XARE15TA PO (22:00)
[2023-09-03] MEDS ORDERED: OCUVTAB4 PO (22:00)
[2023-09-03] MEDS ORDERED: GLUCTAB7 PO (22:00)
[2023-09-03] MEDS ORDERED: FURO20TA2 PO (22:00)
[2023-09-03] MEDS ORDERED: FISH10002 PO (22:00)
[2023-09-03] MEDS ORDERED: LISI10TA22 PO (22:00)
[2023-09-03] MEDS ORDERED: FERR1TAB8 PO (22:00)
[2023-09-03] MEDS ORDERED: CHEL50TA3 PO (22:00)
[2023-09-03] MEDS ORDERED: HOME MED LIST COMPLETE! XX SCH (22:00)
[2023-09-03] MEDS ORDERED: FOLI1TAB11 PO (22:00)
[2023-09-03 23:07] VITALS: BP 148/65; TEMP 97.8; O2SAT 98
[2023-09-03] MEDS: FLECAINIDE 50MG TABLET PO SCH (23:09)
[2023-09-03 23:21] LABS: FERRITIN 23.6 NG/ML (7.3-270.7)
[2023-09-04] VITALS (10 sets, daily range): BP systolic 113–152; BP diastolic 52–70; TEMP 97–97.9; O2SAT 95–99
[2023-09-04 00:11] LABS: HEMATOCRIT 25.5 % (36.0-47.0); HEMOGLOBIN 8.3 g/dl (12.0-15.5)
[2023-09-04 05:36] LABS: HEMATOCRIT 23.6 % (36.0-47.0); HEMOGLOBIN 7.6 g/dl (12.0-15.5)
[2023-09-04] MEDS: LEVOTHYROXINE 100MCG TABLET (0.1MG) PO SCH (06:19)
[2023-09-04 06:27] LABS: BLOOD UREA NITROGEN 39 MG/DL (9-23); CARBON DIOXIDE LEVEL 26 MMOL/L (20-31); CHLORIDE LEVEL 111 MMOL/L (98-107); GLOMERULAR FILTRATION RATE 41.7 (>32); GLUCOSE, FASTING 90 MG/DL (74-106); POTASSIUM SERUM 4.8 MMOL/L (3.5-5.1); SODIUM LEVEL 143 MMOL/L (136-145)
[2023-09-04] MEDS: amLODIPine 5 MG TAB PO SCH (09:00)
[2023-09-04 10:46] LABS: FOLATE > 24.0 NG/ML (>5.4); VITAMIN B12 LEVEL 502 PG/ML (211-911)
[2023-09-04] MEDS: MOM 30ML SUSPENSION UDC PO ONE (16:23)
[2023-09-04] MEDS: POLYETHYLENE GLYCOL (MIRALAX) 238GM BOTTLE PO ONE (18:39)
[2023-09-04 18:55] LABS: HEMATOCRIT 31.4 % (36.0-47.0)
[2023-09-04 19:11] LABS: HEMOGLOBIN 10.1 g/dl (12.0-15.5)
[2023-09-04] MEDS: METOPROLOL SUCC (TopROL XL) 50MG **XL** TAB PO SCH (20:44)
[2023-09-05 00:25] VITALS: BP 144/57; TEMP 97.4; O2SAT 95
[2023-09-05 04:25] VITALS: BP 105/70; TEMP 97.4; O2SAT 98
[2023-09-05] MEDS: POLYETHYLENE GLYCOL (MIRALAX) 238GM BOTTLE PO ONE (05:08)
[2023-09-05 06:00] LABS: BASO # 0.1 10^3/uL (0.0-0.2); BASO % 0.5 % (0.0-1.0); EOS # 0.3 10^3/uL (0.0-0.5); EOS % 2.8 % (0.0-3.0); HEMATOCRIT 30.5 % (36.0-47.0); HEMOGLOBIN 9.8 g/dl (12.0-15.5); LYMPH # 1.3 10^3/uL (1.5-5.0); LYMPH % 13.4 % (24.0-44.0); MEAN CORPUSCULAR HEMOGLOBIN 30.8 pg (27.0-33.0); MEAN CORPUSCULAR HGB CONC 32.1 g/dl (32.0-36.5); MEAN CORPUSCULAR VOLUME 95.9 fl (80.0-96.0); MONO # 0.9 10^3/uL (0.0-0.8); MONO % 9.6 % (2.0-8.0); NEUTROPHILS % 73.3 % (36.0-66.0); PLATELET COUNT, AUTOMATED 244 10^3/uL (150-450); RED BLOOD COUNT 3.18 10^6/uL (4.00-5.40); WHITE BLOOD COUNT 9.5 10^3/uL (4.0-10.0)
[2023-09-05 06:18] LABS: CALCIUM LEVEL 8.1 MG/DL (8.3-10.6); CREATININE FOR GFR 1.03 MG/DL (0.55-1.30); GLOMERULAR FILTRATION RATE 54.6 (>32); POTASSIUM SERUM 4.3 MMOL/L (3.5-5.1)
[2023-09-05 07:45] VITALS: BP 140/63; TEMP 97.5; O2SAT 98
[2023-09-05 08:08] VITALS: BP 140/63
[2023-09-05] MEDS: NS 1,000 ML IV SCH (14:09)
[2023-09-05] MEDS ORDERED: fentaNYL 100 MCG/2 ML INJECTION As Ordered ONE (14:19)
[2023-09-05] MEDS ORDERED: propofoL 200 MG/20 ML VIAL As Ordered ONE (14:45)
[2023-09-05] MEDS ORDERED: GLYCOPYRROLATE INJ 0.2 MG/ML 2 ML VIAL As Ordered ONE (14:55)
[2023-09-05] MEDS ORDERED: PHENYLephrine 500MCG 5ML (100MCG/ML) SYRINGE As Ordered ONE (15:09)
[2023-09-05 16:12] VITALS: BP 107/46; TEMP 97; O2SAT 94
[2023-09-05] MEDS ORDERED: PANT40TA29 PO (17:39)
[2023-09-05] MEDS ORDERED: TOPR50TA PO (17:39)
[2023-09-05] MEDS ORDERED: MIRA3350 PO (17:53)
== END 2023-09-05 18:35 | disposition home or self-care (01) ==
LOC: M ED 15:04 → M ED INP 15:05 → ENRESERV 22:43 → M PCU 23:00
PROVIDERS: ADMIT Internal Medicine; ATTEND Internal Medicine
DX: D50.9 Iron deficiency anemia, unspecified (principal); K92.1 Melena; R00.1 Bradycardia, unspecified; N17.9 Acute kidney failure, unspecified; K57.30 Diverticulosis of large intestine without perforation or abscess without bleeding; Q43.8 Other specified congenital malformations of intestine; K31.811 Angiodysplasia of stomach and duodenum with bleeding; Z79.899 Other long term (current) drug therapy; Z88.1 Allergy status to other antibiotic agents; I12.9 Hypertensive chronic kidney disease with stage 1 through stage 4 chronic kidney disease, or unspecified chronic kidney disease; N18.9 Chronic kidney disease, unspecified; I48.91 Unspecified atrial fibrillation; E03.9 Hypothyroidism, unspecified; R06.02 Shortness of breath
CPT/HCPCS: 36415; 36430; 43255; 45378; 71045; 80048; 80053; 82550; 82553; 82607; 82728; 82746; 83550; 83880; 84484; 85014; 85018; 85025; 86850; 86900; 86901; 86920; 87631; 93005; 96361; 96374; 96376; 97116; 97161; 97165; 97530; 99285; C9113; G0378; J2371; J3010; P9016

== ENCOUNTER → 2023-09-08 | Outpatient (REF) | payer MEDICARE, BC ==
[~2023-09-08] MED LIST changes: +AMLO1TAB24; +CHEL50TA3 PO; +FERR1TAB8 PO; +FISH10002 PO; +FOLI1TAB11 PO; +GLUCTAB7 PO; +LISI10TA22; +LISI10TA22 PO; -METO200T15 PO; +METO200T28 PO; +MIRA3350 PO; +OCUVTAB4 PO; +PANT40TA29 PO; +TOPR50TA PO; +XARE15TA PO
[2023-09-08 12:19] LABS: BASO # 0.1 10^3/uL (0.0-0.2); BASO % 0.6 % (0.0-1.0); EOS # 0.4 10^3/uL (0.0-0.5); EOS % 3.4 % (0.0-3.0); HEMOGLOBIN 10.5 g/dl (12.0-15.5); LYMPH # 1.2 10^3/uL (1.5-5.0); LYMPH % 11.3 % (24.0-44.0); MEAN CORPUSCULAR HEMOGLOBIN 31.2 pg (27.0-33.0); MEAN CORPUSCULAR HGB CONC 30.9 g/dl (32.0-36.5); MEAN CORPUSCULAR VOLUME 100.9 fl (80.0-96.0); MONO # 1.1 10^3/uL (0.0-0.8); MONO % 11.2 % (2.0-8.0); NEUTROPHILS # 7.5 10^3/uL (1.5-8.5); NEUTROPHILS % 73.2 % (36.0-66.0); PLATELET COUNT, AUTOMATED 297 10^3/uL (150-450); RED BLOOD COUNT 3.37 10^6/uL (4.00-5.40); WHITE BLOOD COUNT 10.2 10^3/uL (4.0-10.0)
[2023-09-08 12:33] LABS: ALBUMIN 3.4 G/DL (3.2-5.2); BILIRUBIN,TOTAL 0.6 MG/DL (0.3-1.2); CALCIUM LEVEL 9.1 MG/DL (8.3-10.6); CREATININE FOR GFR 1.32 MG/DL (0.55-1.30); POTASSIUM SERUM 4.8 MMOL/L (3.5-5.1); TOTAL PROTEIN 6.1 G/DL (5.7-8.2)
== END ==
LOC: M LABWUC 11:30
PROVIDERS: ATTEND Internal Medicine
DX: K92.2 Gastrointestinal hemorrhage, unspecified (principal)

== ENCOUNTER → 2023-09-08 | Outpatient (REF) | payer MEDICARE, BC ==
[~2023-09-08] MED LIST changes: +METO200T15 PO; -METO200T28 PO
[2023-09-08 12:19] LABS: HEMATOCRIT 33.5 % (36.0-47.0); HEMOGLOBIN 10.5 g/dl (12.0-15.5); MEAN CORPUSCULAR HEMOGLOBIN 31.6 pg (27.0-33.0); MEAN CORPUSCULAR HGB CONC 31.3 g/dl (32.0-36.5); MEAN CORPUSCULAR VOLUME 100.9 fl (80.0-96.0); PLATELET COUNT, AUTOMATED 287 10^3/uL (150-450); RED BLOOD COUNT 3.32 10^6/uL (4.00-5.40); WHITE BLOOD COUNT 9.9 10^3/uL (4.0-10.0)
== END ==
LOC: M LABWUC 11:31
PROVIDERS: ATTEND Internal Medicine
DX: D64.9 Anemia, unspecified (principal)

== ENCOUNTER → 2024-05-05 | Outpatient (CLI) | payer MEDICARE, BC ==
[~2024-05-05] MED LIST changes: -METR0.7534 TOP; +METR1GEL TOP; -METR1GEL5 TOP; +METR60GE3 TOP
== END ==
LOC: M WHC 14:16
PROVIDERS: ATTEND Internal Medicine
DX: Z12.31 Encounter for screening mammogram for malignant neoplasm of breast (principal)

== ENCOUNTER 2024-10-26 10:51 | Emergency (ER) | payer MEDICARE, BC ==
[~2024-10-26] VITALS: Ht 157.5 cm; Wt 85.2 kg
[2024-10-26] MEDS ORDERED: XARE15TA (10:58)
[2024-10-26 11:35] LABS: BASO % 0.4 % (0.0-1.0); EOS # 0.1 10^3/uL (0.0-0.5); HEMATOCRIT 36.5 % (36.0-47.0); HEMOGLOBIN 11.8 g/dl (12.0-15.5); LYMPH # 0.9 10^3/uL (1.5-5.0); LYMPH % 8.4 % (24.0-44.0); MEAN CORPUSCULAR HEMOGLOBIN 30.4 pg (27.0-33.0); MEAN CORPUSCULAR HGB CONC 32.3 g/dl (32.0-36.5); MEAN CORPUSCULAR VOLUME 94.1 fl (80.0-96.0); MONO # 0.8 10^3/uL (0.0-0.8); MONO % 6.8 % (2.0-8.0); NEUTROPHILS # 9.2 10^3/uL (1.5-8.5); PLATELET COUNT, AUTOMATED 259 10^3/uL (150-450); RED BLOOD COUNT 3.88 10^6/uL (4.00-5.40); WHITE BLOOD COUNT 11.1 10^3/uL (4.0-10.0)
[2024-10-26 12:20] LABS: KETONE, URINE AUTO RFX TRACE mg/dL (NEGATIVE); LEUKOCYTE ESTERASE UR AUTO RFX NEGATIVE (NEGATIVE); NITRITE, URINE AUTO RFX NEGATIVE (NEGATIVE); RBC, URINE AUTO RFX 1 /HPF (0-3); SQUAM EPITHELIAL CELL UR AURFX 11 /HPF (0-6); WBC, URINE AUTO RFX 2 /HPF (0-3)
[2024-10-26] MEDS: ACETAMINOPHEN 325 MG TAB PO ONE (12:38)
[2024-10-26 13:32] LABS: CALCIUM LEVEL 8.8 MG/DL (8.3-10.6); CREATININE FOR GFR 1.03 MG/DL (0.55-1.30); GLOMERULAR FILTRATION RATE 53.6 (>32); POTASSIUM SERUM 4.6 MMOL/L (3.5-5.1)
[2024-10-26 14:09] VITALS: BP 141/65; TEMP 97; O2SAT 98
== END 2024-10-26 14:11 | disposition home or self-care (01) ==
LOC: M ED 10:51
DX: S76.811A Strain of other specified muscles, fascia and tendons at thigh level, right thigh, initial encounter (principal); X58.XXXA Exposure to other specified factors, initial encounter; I10 Essential (primary) hypertension; E03.9 Hypothyroidism, unspecified; K57.30 Diverticulosis of large intestine without perforation or abscess without bleeding; G43.909 Migraine, unspecified, not intractable, without status migrainosus; Z87.442 Personal history of urinary calculi; Z88.8 Allergy status to other drugs, medicaments and biological substances; Z79.899 Other long term (current) drug therapy; Y92.009 Unspecified place in unspecified non-institutional (private) residence as the place of occurrence of the external cause; Y93.89 Activity, other specified; Y99.9 Unspecified external cause status

== ENCOUNTER → 2024-10-28 | Outpatient (CLI) | payer MEDICARE, BC ==
[~2024-10-28] MED LIST changes: +XARE15TA
[2024-10-28 14:03] LABS: FERRITIN 98.9 NG/ML (7.3-270.7)
[2024-10-28 14:04] LABS: THYROID STIMULATING HORMONE 4.051 uIU/ML (0.55-4.78)
[2024-10-28 14:07] LABS: CHOLESTEROL RISK RATIO 2.46 (<5); HDL CHOLESTEROL 92.8 MG/DL (>40); LDL CHOLESTEROL 125.2 MG/DL (<100); NON-HDL-C 136.2 MG/DL; PERCENT SATURATION 33.7 % (13.2-45.0)
== END ==
LOC: M PLALAB 11:06
PROVIDERS: ATTEND Internal Medicine
DX: E78.5 Hyperlipidemia, unspecified (principal); E03.9 Hypothyroidism, unspecified; D64.9 Anemia, unspecified

== ENCOUNTER → 2025-04-29 | Outpatient (CLI) | payer MEDICARE, BC ==
[2025-04-29 15:34] LABS: BASO # 0.1 10^3/uL (0.0-0.2); BASO % 0.6 % (0.0-1.0); EOS # 0.5 10^3/uL (0.0-0.5); EOS % 6.4 % (0.0-3.0); LYMPH # 1.3 10^3/uL (1.5-5.0); LYMPH % 15.8 % (24.0-44.0); MONO # 0.8 10^3/uL (0.0-0.8); MONO % 9.7 % (2.0-8.0); NEUTROPHILS # 5.5 10^3/uL (1.5-8.5); NEUTROPHILS % 67.1 % (36.0-66.0); PLATELET COUNT, AUTOMATED 272 10^3/uL (150-450)
[2025-04-29 15:40] LABS: ALT/SGPT 16.0 U/L (7.0-40); AST/SGOT 22.0 U/L (<34); CALCIUM LEVEL 9.0 MG/DL (8.3-10.6); CARBON DIOXIDE LEVEL 29.0 MMOL/L (20-31); CHLORIDE LEVEL 102.0 MMOL/L (98-107); CHOLESTEROL LEVEL 240.0 MG/DL (<200); CHOLESTEROL RISK RATIO 2.58 (<5); CREATININE FOR GFR 1.36 MG/DL (0.55-1.30); GLOMERULAR FILTRATION RATE 38.4 (>32); LDL CHOLESTEROL 136.2 MG/DL (<100); NON-HDL-C 147.0 MG/DL; POTASSIUM SERUM 5.3 MMOL/L (3.5-5.1); SODIUM LEVEL 140.0 MMOL/L (136-145); TRIGLYCERIDES LEVEL 54.0 MG/DL (<150)
== END ==
LOC: M PLALAB 11:51
PROVIDERS: ATTEND Internal Medicine
DX: E03.9 Hypothyroidism, unspecified (principal); E78.5 Hyperlipidemia, unspecified

== ENCOUNTER → 2025-05-27 | Outpatient (CLI) | payer MEDICARE, BC ==
[~2025-05-27] MED LIST changes: -FISH10002 PO; +[UNRECOGNIZED DRUG - CODE] PO
== END ==
LOC: M WHC 12:53
PROVIDERS: ATTEND Internal Medicine
DX: Z12.31 Encounter for screening mammogram for malignant neoplasm of breast (principal)